=== PATIENT | female | born 1950 | race Caucasian/White ===

== ENCOUNTER 2018-06-02 17:08 | Inpatient (IN) | payer MEDICARE, BC ==
[~2018-06-02] VITALS: Ht 167.6 cm; Wt 84.1 kg
--- NOTE | ~2018-06-02 | TEE ---
PATIENT:BETTIE BERGERON MEDICAL RECORD: [id number] LOCATION:[place] [address] AGE OF PATIENT: 68 ADMISSION DATE: 06/02/18 SEX: F REFERRING PHYSICIAN: INTERPRETING PHYSICIAN: HALEY FUNEZ MD TRANSESOPHAGEAL ECHOCARDIOGRAM Date: 06/08/18 PILY CHARGE Y INDICATIONS: CABG PREMEDICATIONS: PATIENT'S RESPONSE PROCEDURE DOPPLER MEASUREMENTS: LVIT LA PA 85 RA LVOT 75 RVOT 60 Asc. Ao 119 AV Gradient Peak 5.7 AV Mean 3.1 AV Area 1.8 MV Gradient Peak 5.2 MV Mean 2.1 MV Area INTERPRETATION: LVd: 4.5 cm LVs: 2.6 cm Doppler: 2-D: COLOR FLOW DOPPLER NORMAL SALINE STUDY: MISCELLANOUS: DIAGNOSIS: PLAN: Laboratory Tech:Emilio Carpio Television And Radio Repairer: Julio Cesar KHALIL COMMENTS: DATE OF SERVICE: 06/09/2018 This is an intraoperative transesophageal. Preoperatively, normal wall motion and normal thickening. [id number] MR. Postoperatively, again, good contractility with normal thickening and normal EF. [id number] MR. TRANSINT:[id number] Voice Confirmation ID: [id number] DOCUMENT ID: [id number] TRANSESOPHAGEAL ECHOCARDIOGRAM REPORT [id number] JERRI BERGERON HALEY FUNEZ MD CC: [id number] DICTATION DATE: 06/09/18 162 INTERNAL SALESPERSON: 06/09/18[address] [facility] [address] [place] [id number]
--- NOTE | ~2018-06-02 | HEMODYNAMI ---
PATIENT:BETTIE BERGERON MEDICAL RECORD: [id number] : 52 LOCATION:[facility] ADMISSION DATE: 06/02/18 Generatedon:06/04/201810:40 Patient name: BETTIE BERGERON Patient #: [id number] SSN: D OB: 1950 Date of study: 06/04/2018 Page: Of Hemodynamic Procedure Report Patient Data Patient Demographics Procedure consent was obtained First Name: BETTIE Gender: Female Last Name: RUBIO : 1950 Patient #: [id number] Age: 68 year(s) Race: Unknown Additional ID: [id number] Contact details Address: [address] [place] [address] State: [facility] Zip code: [address] Past Medical History Allergies: No known allergies Admission Admission Data Admission Date: 06/02/2018 Admission Time: 19:35 Room #: [facility] Height (in.): 66 BSA: 1.88 (m2) Height (cm.): 167.64 BMI: 27.96 (kg/m2) Weight (lbs.): 173.26 Weight (kg.): 78.59 Lab Results Lab Result Date: 06/04/2018 Lab Result Time: 0:00 Biochemistry Name Units Result Min Max BUN mg/dl 9 --(*---)-- 7 18 Creatinine mg/dl 0.7 --(*---)-- 0.6 1.3 CBC Name Units Result Min Max Hematocrit % 41.8 -*(----)-- 42 54 Hemoglobin g/dl 14.3 --(*---)-- 13.5 17.5 Procedure Procedure Types Cath Procedure Diagnostic Procedure C [facility] w/Coronaries Sedation Charges Moderate Sedation up to 15 minutes Procedure Description Procedure Date Procedure Date: 06/04/2018 Procedure Start Time: 10:20 Procedure End Time: 10:37 Procedure Staff Name Function Flaco Carpio MD Performing Physician Ania Sprague RT Monitor Elaine Siddiqui RT Scrub Ofelia Brownlee RN Nurse Elvin Almeida RN Ice Cream Dispenser Procedure Data Cath Procedure Fluoroscopy Diagnostic fluoroscopy Total fluoroscopy Time: 3.1 time: 3.1 min min Diagnostic fluoroscopy Total fluoroscopy dose: 527 dose: 527 mGy mGy Contrast Material Contrast Material Type Amount (ml) Isovue 300 84 Entry Location Entry Primary Successful Side Size Upsize Upsize Entry Closure Succes sful Closure Location (Fr) 1 (Fr) 2 (Fr) Remarks Device Remarks Femoral Right 5 Fr Exoseal artery Estimated blood loss: 10 ml Diagnostic catheters Device Type Used For End Catheter Placement MULTIPACK JL 4.0 5Fr Procedure catheter MULTIPACK 3DRC 5Fr Procedure catheter DIAGNOSTIC AL1 5Fr Procedure catheter ([id number]) DIAGNOSTIC IM 5Fr Procedure catheter ([id number]) MULTIPACK Pigtail 5 Fr Procedure catheter Procedure Complications No complications Procedure Medications Medication Administration Route Dosage 0.9% NaCl I.V. 100 ml/hr Oxygen etCO2 Nasal cannula 2 l/min Lidocaine 2% added to field 20 Heparin Flush Bag added to field 2 bags (1000units/500ml NS) Versed I.V. 2 mg Fentanyl I.V. 50 mcg Versed I.V. 1 mg Fentanyl I.V. 25 mcg Hemodynamics Rest BSA: 1.88 (m2) HGB: 14.3 (g/dl) O2 Consumption: Estimated: 184.37 (ml/min) O2 Co nsumption indexed: Estimated:98.07 (ml/min/m) Heart Rate: 84 (bpm) Pressure Samples Time Site Value (mmHg) Purpose Heart Use Rate(bpm) 10:32 LV 134/0,16 Snapshot 83 10:33 AO 135/67(95) Pullback 83 10:33 LV 135/14,17 Pullback 83 Gradients Valve Time Site 1 Site 2 Mean SEP/DFP Peak To Heart Use (mmHg) (sec/min) Peak Rate (mmHg) (bpm) Aortic 10:33 LV AO 4 22 0 83 135/14,17 135/67(95) Calculations Valve P-P Mean Valve Index Valve Source Name Gradient Area Flow (cm2) Aortic 0 4 0 4 Snapshots Pre Cath Intra NCS Post Cath Vital Signs Time Heart Resp SPO2 etCO2 NIBP (mmHg) Rhythm Pain Sedation Rate (ipm) (%) (mmHg) Status Level (bpm) 10:04:52 84 11 100 38.9 155/92(126) NSR 0 (11) 10(A) , No pain 10:09:08 84 10 98 36 134/76(113) NSR 0 (11) 10(A) , No pain 10:13:22 83 10 98 37.5 131/74(108) NSR 0 (11) 10(A) , No pain 10:17:32 81 12 99 29.2 145/87(107) NSR 0 (11) 10(A) , No pain 10:21:45 82 10 98 42 130/70(103) NSR 0 (11) 10(A) , No pain 10:25:57 83 11 97 40.5 125/73(104) NSR 0 (11) 9(A) , No pain 10:30:07 82 12 98 39.8 127/77(94) NSR 0 (11) 9(A) , No pain 10:34:19 82 10 98 37.5 127/74(105) NSR 0 (11) 10(A) , No pain Medications Time Medication Route Dose Verified Delivered Reason Notes Eff ectiveness by by 10:03:33 0.9% NaCl I.V. 100 Flaco Ofelia used for ml/hr Balaji Brownlee supervisor bonding 10:03:40 Oxygen etCO2 2 Flaco Ofelia used for Nasal l/min Balaji Brownlee procedure cannula RN 10:03:45 Lidocaine 2% added 20ml Flaco Flaco for local to vial Balaji Carpio MD anesthetic field 10:03:50 Heparin Flush added 2 Flaco Flaco used for Bag to bags Balaji Carpio MD procedure (1000units/500ml field NS) 10:16:08 Versed I.V. 2 mg Flaco Ofelia for Balaji Brownlee sedation RN 10:16:18 Fentanyl I.V. 50 Flaco Ofelia for mcg Balaji Brownlee sedation RN 10:21:11 Versed I.V. 1 mg Flaco Ofelia for Balaji Brownlee sedation RN 10:21:21 Fentanyl I.V. 25 Flaco Ofelia for mcg Balaji Brownlee sedation market maker Log Time Note 9:24:42 Signed procedure consent form obtained from patient. 9:24:43 Diagnostic Cath status Elective 9:24:44 Time tracking: Regular hours (M-F 7:00 - 5:00) 9:24:49 Plan of Care:Hemodynamics will remain stable., Cardiac rhythm will remain stable., Comfort level will be maintained., Respiratory function will remain adequate., Patient/ family verbilizes understanding of procedure., Procedure tolerated without complication., Recovers from procedure without complications.. 9:24:59 Patient allergic to No known allergies 9:25:07 Patient Height : 66 inches 9:25:14 Patient Weight : 173.26 lbs 9::24 Lab Result : BUN 9 mg/dl 9::24 Lab Result : Hemoglobin 14.3 g/dl 9::24 Lab Result : Creatinine 0.7 mg/dl 9::24 Lab Result : Hematocrit 41.8 % 9:44:57 Elvin Almeida RN sent for patient. Start room use. 9:57:14 Patient received from Med II to CCL 1 Alert and oriented. Tansferred to table in Supine position. 9:57:15 Warm blankets applied, and yanna hugger turned on for patient comfort. 9:57:15 Correct patient and procedure confirmed by team. 9:57:16 ECG and BP/O2 sat monitors applied to patient. 10:03:22 Vital chart was started 10:03:33 0.9% NaCl 100 ml/hr I.V. was administered by Ofelia Brownlee RN; used for procedure; 10:03:40 Oxygen 2 l/min etCO2 Nasal cannula was administered by Ofelia Brownlee RN; used for procedure; 10:03:45 Lidocaine 2% 20ml vial added to field was administered by Flaco Carpio MD; for local anesthetic; 10:03:50 Heparin Flush Bag (1000units/500ml NS) 2 bags added to field was administered by Flaco Carpio MD; used for procedure; 10:09:33 Pre-procedure instructions explained to patient. 10:09:34 Pre-op teaching completed and patient verbalized understanding. 10:09:44 Family in patients room. 10:09:50 Baseline sample Acquired. 10:09:54 Rhythm: sinus rhythm 10:09:55 Baseline sample Acquired. 10:10:01 Is patient on blood thinner?Yes 10:10:09 LAST PLAVIX 4.2.19 10:10:17 Patient diabetic? Yes. 10:10:18 If diabetic: On Metformin? Yes 10:10:41 If on Metformin: Last Dose? 06/02/2018 10:10:44 Previous problem with sedation/anesthesia? No ? 10:10:45 Snore? No 10:10:46 Sleep apnea? No 10:10:47 Deviated septum? No 10:10:48 Opens mouth fully? Yes 10:10:48 Sticks out tongue? Yes 10:10:50 Airway obstruction? No ? 10:10:52 Dentures? No ? 10:10:55 Pre procedure: right dorsailis pedis pulse Doppler 10:11:02 Patient pain scale 0/10 ?. 10:11:06 IV patent on arrival in left hand with 0.9% NaCl at [facility]. 10:11:08 Lab results completed and on chart. 10:11:11 Right groin area was prepped with chlora-prep and draped in sterile fashion 10:11:12 Alarms reviewed by R. N. 10:11:12 Sharps counted by scrub and verified by R.N. 10:11:16 Use device set Femoral Dx 10:11:18 ACIST Syringe (08751) opened to sterile field. 10:11:18 Bag Decanter (2002S) opened to sterile field. 10:11:20 ACIST Hand Control (00486) opened to sterile field. 10:11:20 ACIST Manifold (88517) opened to sterile field. 10:11:21 Tegaderm 4 x 4 (1626W) opened to sterile field. 10:11:23 Medline Cath Pack ([id number]) opened to sterile field. 10:11:23 DIAGNOSTIC WIRE .035 260cm J wire (689313) opened to sterile field. 10:11:24 DIAGNOSTIC Multipack 5Fr catheter set (MD6411) opened to sterile field. 10:11:25 SHEATH 5FR Naylor ([id number]) opened to sterile field. 10:13:42 H&P Date Dictated: 06/02/2018 Within 30 days and on chart.. 10:15:54 --------ALL STOP TIME OUT------ 10:15:55 Final Timeout: patient, procedure, and site verified with staff and physician. All members of the team are in agreement. 10:15:57 Right groin site verified by team. 10:16:00 Maximum allowable Isovue 300 dose 300ml. Physician notified. (300ml for normal creatinines. For patients with creatinine of 1.7 or higher multiply weight(kg) x 5 divided by creatinine.) 10:16:04 Fire Safety Assessment: A--An alcohol-based skin anteseptic being used preoperatively., C--Open oxygen or nitrous oxide is being used., D--An ESU, laser, or fiber-optic light is being used. 10:16:08 Versed 2 mg I.V. was administered by Ofelia Brownlee RN; for sedation; 10:16:08 Sedation plan: IV Moderate Sedation Medication:Versed, Fentanyl 10:16:18 Fentanyl 50 mcg I.V. was administered by Ofelia Brownlee RN; for sedation; 10:: Zero performed for pressure channel P1 10:: Zero performed for pressure channel P1 10:20:05 Procedure started. 10:: Full Disclosure recording started 10:: Local anesthetic to right femoral artery with Lidocaine 2% by Flaco Carpio MD.INITIAL ACCESS ONLY 10:21:11 Versed 1 mg I.V. was administered by Ofelia Brownlee RN; for sedation; 10:: Fentanyl 25 mcg I.V. was administered by Ofelia Brownlee RN; for sedation; 10:21:40 A 5 Fr sheath was inserted into the Right Femoral artery 10:22:11 A MULTIPACK JL 4.0 5Fr catheter was advanced over the wire and used for Procedure. 10:24:59 LCA angiography performed. 10:25:00 Catheter exchanged over wire. 10:26:15 A MULTIPACK 3DRC 5Fr catheter was advanced over the wire and used for Procedure. 10:27:10 Catheter exchanged over wire. 10:27:18 UNABLE TO ENGAGE RCA 10:28:03 A DIAGNOSTIC AL1 5Fr catheter ([id number]) was advanced over the wire and used for Procedure. 10:28:53 RCA angiography performed. 10:29:18 Catheter exchanged over wire. 10:30:09 A DIAGNOSTIC IM 5Fr catheter ([id number]) was advanced over the wire and used for Procedure. 10:31:18 SANDS ANGIOGRAPHY PERFORMED 10:31:23 Catheter exchanged over wire. 10:31:31 A MULTIPACK Pigtail 5 Fr catheter was advanced over the wire and used for Procedure. 10:32:01 LV gram done using ORDOÑEZ 10:32:03 Injector settings: Ml/sec: 10, Volume: 20, 10:32:37 LV hemodynamics recorded. 10:32:47 EF : 50 % 10:33:03 Catheter removed. 10:33:18 EXOSEAL 5Fr (EX500) opened to sterile field. 10:34:38 Sheath removed intact; hemostasis achieved with Exoseal to the Right Femoral artery. 10:34:50 Procedure ended.(Physican Out) 10:35:04 Fluoroscopy time 03.10 minutes. 10:35:09 Fluoroscopy dose: 527 mGy 10:35:09 Flurop Dose total: 527 10:36:29 Contrast amount:Isovue 300 84ml. 10:36:30 Sharps counted by scrub and verified by R.N. 10:36:35 Post-op/insertion site Right Femoral artery dressed using a 4 x 4 and Tegaderm. 10:36:40 Post-procedure physical assessment completed. ASA score P 3 - A patient with severe systemic disease as per Flaco Carpio MD. 10:36:44 Post procedure rhythm: sinus rhythm 10:36:45 Estimated blood loss: 10 ml 10:36:53 Post procedure instruction explained to patient.Patient verbalizes understanding. 10:36:54 Patient needs reinforcement of post procedure teaching. 10:37:00 Procedure type changed to Cath procedure, Diagnostic procedure, LHC, LHC w/Coronaries, Sedation Charges, Moderate Sedation up to 15 minutes 10:37:22 Procedure and supply charges have been captured, reviewed, submitted and are correct. 10:37:24 Procedure Complication : No complications 10:37:26 Vital chart was stopped 10:37:27 See physician's report for complete and final results. 10:37:29 Report given to PCU. 10:37:33 Patient transfered to PCU with Bed. 10:37:35 Procedure ended. 10:37:35 Full Disclosure recording stopped 10:37:38 End room use (Document Last) Device Usage Item Name Manufacture Quantity Catalog Hospital Part Current Minimal L ot# / Number Charge Number Stock Stock Serial# Code ACIST Acist 1 79823 590459 194537 482606 20 Syringe Mediasurface (36955) Systems Inc Bag Microtek 1 864816 92979 898659 5 Decanter Medical Inc. () ACIST Hand Acist 1 47380 936478 631404 405228 5 Control Medical (64649) Systems Inc ACIST Acist 1 89246 007635 025901 273345 5 Manifold Medical (95928) Systems Inc Tegaderm 4 3M 1 1626W 828606 834628 097349 5 x 4 (1626W) Medline Medline 1 [id number] 957013 66065 442927 5 Cath Pack ([id number]) DIAGNOSTIC St Sandip 1 271360 454996 133978 545228 30 WIRE .035 260cm J wire (116156) DIAGNOSTIC Cardinal 1 [id number] 792564 84850 563043 30 Multipack Health 5Fr catheter set (AX7502) SHEATH 5FR Terumo 1 POZ755 497513 196499 108559 5 Naylor (VYU925) MULTIPACK Cardinal 1 832382 5 JL 4.0 5Fr Health catheter MULTIPACK Cardinal 1 417733 5 3DRC 5Fr Health catheter DIAGNOSTIC Cardinal 1 [id number] 174285 045226 542335 15 AL1 5Fr Health catheter ([id number]) DIAGNOSTIC Cardinal 1 [id number] 480123 394482 044291 5 IM 5Fr Health catheter ([id number]) MULTIPACK Cardinal 1 801024 5 Pigtail 5 Health Fr catheter EXOSEAL 5Fr Cardinal 1 EX500 185348 899656 880722 10 (EX500) Health Signature Audit Waymart Stage Time Signature Unsigned Intra-Procedure 06/04/2018 Elaine Siddiqui 10:40:32 AM RT(R) Signatures Monitor : Ania Signature : Counts RT Date : Time : [facility] [address] [place] [address]
[2018-06-02] MEDS ORDERED: LANTUS SOL100 UNIT/1 SC (17:14)
[2018-06-02] MEDS ORDERED: ACCUPRIL20 MG PO (17:15)
[2018-06-02] MEDS ORDERED: HUMALOG 30100 UNITS/ SC (17:15)
[2018-06-02] MEDS ORDERED: LIPITOR40 MG PO (17:15)
[2018-06-02] MEDS ORDERED: PLAVIX75 MG PO (17:15)
[2018-06-02] MEDS ORDERED: GLUCOPHAGE1000 MG PO (17:16)
[2018-06-02 18:10] LABS: BASOPHILS 0.6 % (0-2); EOSINOPHILS 0.7 % (0-7); HEMOGLOBIN 15.2 g/dL (12-16); IMMATURE GRANULOCYTES 0.3 % (0-5); LYMPHOCYTES 19.6 % (15-50); MCH 30.5 pg (26.0-34.0); MCHC 35.3 g/dL (31.0-37.0); MCV 86.2 fL (80.0-100.0); MEAN PLATELET VOLUME 12.1 fL (7.4-10.4); MONOCYTES 7.9 % (2-11); NEUTROPHILS 70.9 % (40-80); PLATELET COUNT 221 10x3/uL (130-400); RBC 4.99 10x6/uL (4.00-5.40); RDW 12.4 % (11.5-14.5); WBC 6.8 10x3/uL (4.8-10.8)
[2018-06-02 18:21] LABS: APTT 25.5 SECONDS (22.8-39.4); INR 1.08 (0.85-1.17); PROTIME 13.5 SECONDS (11.6-15.0)
[2018-06-02 18:47] LABS: ALBUMIN 2.8 g/dL (3.4-5.0); ALKALINE PHOSPHATASE 153 U/L (46-116); ALT (SGPT) 25 U/L (10-68); BILIRUBIN - TOTAL 0.33 mg/dL (0.2-1.3); CALC OSMOLALITY 290 mosm/kg (275-300); CALCIUM 8.1 mg/dL (8.5-10.1); CARBON DIOXIDE 26.9 mmol/L (21.0-32.0); CHLORIDE - SERUM 102 mmol/L (98-107); CKMB 3.2 U/L (0.0-3.6); CREATINE KINASE 70 UL (21-215); CREATININE - SERUM 0.7 mg/dL (0.6-1.3); GLUCOSE 351 mg/dL (74-106); POTASSIUM - SERUM 3.4 mmol/L (3.5-5.1); PROTEIN - SERUM 6.6 g/dL (6.4-8.2); SODIUM 139 mmol/L (136-145); UREA NITROGEN 10 mg/dL (7-18); eGFR NON AFRICAN AMERICAN 88 mL/min (90-120)
[2018-06-02 19:00] LABS: TROPONIN-I 0.601 ng/mL (0.000-0.060)
[2018-06-02 19:42] VITALS: BP 144/83
[2018-06-02 20:00] VITALS: BP 130/80
[2018-06-02 20:26] VITALS: BP 133/83
[2018-06-03] VITALS: BP 142/69
[2018-06-03 03:22] VITALS: BP 130/80; BMI 28.1
[2018-06-03 04:00] VITALS: BP 124/76
[2018-06-03 05:43] LABS: BASOPHILS 0.8 % (0-2); EOSINOPHILS 1.5 % (0-7); HEMATOCRIT 41.4 % (36.0-48.0); HEMOGLOBIN 14.3 g/dL (12-16); IMMATURE GRANULOCYTES 0.2 % (0-5); LYMPHOCYTES 25.3 % (15-50); MCH 30.2 pg (26.0-34.0); MCHC 34.5 g/dL (31.0-37.0); MCV 87.5 fL (80.0-100.0); MEAN PLATELET VOLUME 11.6 fL (7.4-10.4); MONOCYTES 8.8 % (2-11); NEUTROPHILS 63.4 % (40-80); PLATELET COUNT 192 10x3/uL (130-400); RBC 4.73 10x6/uL (4.00-5.40); RDW 12.4 % (11.5-14.5); WBC 6.1 10x3/uL (4.8-10.8)
[2018-06-03 06:15] LABS: ALBUMIN 2.8 g/dL (3.4-5.0); ALKALINE PHOSPHATASE 146 U/L (46-116); ALT (SGPT) 23 U/L (10-68); BILIRUBIN - TOTAL 0.53 mg/dL (0.2-1.3); CALCIUM 8.4 mg/dL (8.5-10.1); CARBON DIOXIDE 31.3 mmol/L (21.0-32.0); CHLORIDE - SERUM 102 mmol/L (98-107); CREATININE - SERUM 0.7 mg/dL (0.6-1.3); POTASSIUM - SERUM 3.1 mmol/L (3.5-5.1); PROTEIN - SERUM 6.4 g/dL (6.4-8.2); SODIUM 140 mmol/L (136-145); eGFR NON AFRICAN AMERICAN 88 mL/min (90-120)
[2018-06-03 06:16] LABS: CALC OSMOLALITY 288 mosm/kg (275-300); GLUCOSE 276 mg/dL (74-106); UREA NITROGEN 13 mg/dL (7-18)
[2018-06-03 09:23] VITALS: BP 142/75
[2018-06-03 13:01] VITALS: BP 154/70
[2018-06-03 20:30] VITALS: BP 150/73
[2018-06-04] VITALS (10 sets, daily range): BP systolic 123–152; BP diastolic 62–83; BMI 27.9
[2018-06-04 05:59] LABS: BASOPHILS 0.8 % (0-2); HEMATOCRIT 41.8 % (36.0-48.0); HEMOGLOBIN 14.3 g/dL (12-16); IMMATURE GRANULOCYTES 0.2 % (0-5); LYMPHOCYTES 24.2 % (15-50); MCH 29.5 pg (26.0-34.0); MCHC 34.2 g/dL (31.0-37.0); MCV 86.4 fL (80.0-100.0); MONOCYTES 10.5 % (2-11); NEUTROPHILS 61.3 % (40-80); PLATELET COUNT 185 10x3/uL (130-400); RBC 4.84 10x6/uL (4.00-5.40); RDW 12.4 % (11.5-14.5)
[2018-06-04 06:09] LABS: ALBUMIN 2.5 g/dL (3.4-5.0); ALKALINE PHOSPHATASE 129 U/L (46-116); ALT (SGPT) 22 U/L (10-68); BILIRUBIN - TOTAL 0.46 mg/dL (0.2-1.3); CALC OSMOLALITY 285 mosm/kg (275-300); CALCIUM 8.2 mg/dL (8.5-10.1); CARBON DIOXIDE 29.2 mmol/L (21.0-32.0); CHLORIDE - SERUM 104 mmol/L (98-107); CREATININE - SERUM 0.7 mg/dL (0.6-1.3); GLUCOSE 258 mg/dL (74-106); MAGNESIUM - SERUM 1.8 mg/dL (1.8-2.4); POTASSIUM - SERUM 3.4 mmol/L (3.5-5.1); SODIUM 139 mmol/L (136-145); eGFR NON AFRICAN AMERICAN 88 mL/min (90-120)
[2018-06-04 06:11] LABS: UREA NITROGEN 9 mg/dL (7-18)
[2018-06-04 15:38] LABS: PLT FUNCT.(P2Y12) PLAVIX 224 PRU (194-418)
[2018-06-05] VITALS: BP 125/52
[2018-06-05 04:00] VITALS: BP 145/88
[2018-06-05 04:49] LABS: BASOPHILS 0.5 % (0-2); EOSINOPHILS 2.6 % (0-7); HEMATOCRIT 41.3 % (36.0-48.0); IMMATURE GRANULOCYTES 0.2 % (0-5); LYMPHOCYTES 22.5 % (15-50); MCH 29.9 pg (26.0-34.0); MCHC 33.9 g/dL (31.0-37.0); MCV 88.2 fL (80.0-100.0); MEAN PLATELET VOLUME 11.7 fL (7.4-10.4); MONOCYTES 10.7 % (2-11); NEUTROPHILS 63.5 % (40-80); PLATELET COUNT 166 10x3/uL (130-400); RBC 4.68 10x6/uL (4.00-5.40); RDW 12.6 % (11.5-14.5); WBC 6.1 10x3/uL (4.8-10.8)
[2018-06-05 05:11] LABS: ALBUMIN 2.5 g/dL (3.4-5.0); ALKALINE PHOSPHATASE 128 U/L (46-116); ALT (SGPT) 24 U/L (10-68); BILIRUBIN - TOTAL 0.31 mg/dL (0.2-1.3); CALCIUM 8.1 mg/dL (8.5-10.1); CARBON DIOXIDE 28.1 mmol/L (21.0-32.0); CHLORIDE - SERUM 102 mmol/L (98-107); CREATININE - SERUM 0.7 mg/dL (0.6-1.3); PROTEIN - SERUM 6.2 g/dL (6.4-8.2); SODIUM 135 mmol/L (136-145); eGFR NON AFRICAN AMERICAN 88 mL/min (90-120)
[2018-06-05 05:14] LABS: CALC OSMOLALITY 283 mosm/kg (275-300); GLUCOSE 328 mg/dL (74-106); UREA NITROGEN 15 mg/dL (7-18)
[2018-06-05 08:12] VITALS: BP 144/79
[2018-06-05 12:06] LABS: BASOPHILS 0.3 % (0-2); EOSINOPHILS 1.7 % (0-7); HEMATOCRIT 40.8 % (36.0-48.0); HEMOGLOBIN 14.1 g/dL (12-16); IMMATURE GRANULOCYTES 0.2 % (0-5); LYMPHOCYTES 16.4 % (15-50); MCH 30.5 pg (26.0-34.0); MCHC 34.6 g/dL (31.0-37.0); MCV 88.1 fL (80.0-100.0); MEAN PLATELET VOLUME 11.9 fL (7.4-10.4); MONOCYTES 8.9 % (2-11); NEUTROPHILS 72.5 % (40-80); RBC 4.63 10x6/uL (4.00-5.40); RDW 12.6 % (11.5-14.5); WBC 5.7 10x3/uL (4.8-10.8)
[2018-06-05 12:08] LABS: PLATELET COUNT 203 10x3/uL (130-400)
[2018-06-05 12:10] LABS: APTT 22.2 SECONDS (22.8-39.4); INR 1.1 (0.85-1.17); PROTIME 13.7 SECONDS (11.6-15.0)
[2018-06-05 12:26] LABS: ALBUMIN 2.6 g/dL (3.4-5.0); ALKALINE PHOSPHATASE 130 U/L (46-116); ALT (SGPT) 26 U/L (10-68); BILIRUBIN - TOTAL 0.34 mg/dL (0.2-1.3); CALC OSMOLALITY 282 mosm/kg (275-300); CALCIUM 8.1 mg/dL (8.5-10.1); CARBON DIOXIDE 28.8 mmol/L (21.0-32.0); CHLORIDE - SERUM 100 mmol/L (98-107); CHOLESTEROL, TOTAL 247 mg/dL (0-200); CREATININE - SERUM 0.7 mg/dL (0.6-1.3); GLUCOSE 344 mg/dL (74-106); PHOSPHOROUS 3.5 mg/dL (2.5-4.9); POTASSIUM - SERUM 3.9 mmol/L (3.5-5.1); PROTEIN - SERUM 6.2 g/dL (6.4-8.2); SODIUM 134 mmol/L (136-145); T4 THYROXIN - FREE 1.13 ng/dL (0.76-1.46); THYROID STIMULATING HORMONE 0.72 uIU/mL (0.36-3.74); UREA NITROGEN 14 mg/dL (7-18); URIC ACID 2.1 mg/dL (2.6-7.2); eGFR NON AFRICAN AMERICAN 88 mL/min (90-120)
[2018-06-05 12:31] VITALS: BP 136/60
[2018-06-05 16:06] VITALS: Ht 167.6 cm; Wt 84.1 kg
[2018-06-05 16:39] VITALS: BP 116/61
[2018-06-05 18:04] LABS: APPEARANCE CLEAR (CLEAR); COLOR YELLOW (YELLOW); SPECIFIC GRAVITY 1.015 (1.005-1.020)
[2018-06-05 18:05] LABS: BILIRUBIN NEGATIVE (NEGATIVE); GLUCOSE 1000 mg/dL (NEGATIVE); KETONE NEGATIVE (NEGATIVE); NITRITE NEGATIVE (NEGATIVE); PROTEIN NEGATIVE (NEGATIVE); UROBILINOGEN NORMAL (NORMAL)
[2018-06-05 20:00] VITALS: BP 160/76
[2018-06-06 00:06] VITALS: BP 135/66
[2018-06-06 04:00] VITALS: BP 136/66
[2018-06-06 05:10] LABS: BASOPHILS 0.4 % (0-2); EOSINOPHILS 2.3 % (0-7); HEMATOCRIT 41.8 % (36.0-48.0); HEMOGLOBIN 14.3 g/dL (12-16); IMMATURE GRANULOCYTES 0.1 % (0-5); LYMPHOCYTES 27.5 % (15-50); MCH 29.9 pg (26.0-34.0); MCHC 34.2 g/dL (31.0-37.0); MCV 87.4 fL (80.0-100.0); MONOCYTES 12.4 % (2-11); NEUTROPHILS 57.3 % (40-80); PLATELET COUNT 179 10x3/uL (130-400); RBC 4.78 10x6/uL (4.00-5.40); RDW 12.4 % (11.5-14.5); WBC 6.8 10x3/uL (4.8-10.8)
[2018-06-06 05:30] LABS: ALBUMIN 2.6 g/dL (3.4-5.0); ALKALINE PHOSPHATASE 126 U/L (46-116); ALT (SGPT) 29 U/L (10-68); BILIRUBIN - TOTAL 0.41 mg/dL (0.2-1.3); CALCIUM 8.3 mg/dL (8.5-10.1); CARBON DIOXIDE 28.6 mmol/L (21.0-32.0); CHLORIDE - SERUM 103 mmol/L (98-107); CREATININE - SERUM 0.6 mg/dL (0.6-1.3); POTASSIUM - SERUM 3.6 mmol/L (3.5-5.1); PROTEIN - SERUM 6.3 g/dL (6.4-8.2); SODIUM 138 mmol/L (136-145); UREA NITROGEN 14 mg/dL (7-18); eGFR NON AFRICAN AMERICAN > 90 mL/min (90-120)
[2018-06-06 05:31] LABS: CALC OSMOLALITY 279 mosm/kg (275-300); GLUCOSE 154 mg/dL (74-106)
[2018-06-06 09:51] VITALS: BP 140/70
[2018-06-06 13:11] VITALS: BP 141/79
[2018-06-06 17:40] VITALS: BP 128/86
[2018-06-06 20:13] LABS: INR 1.11 (0.85-1.17); PROTIME 13.8 SECONDS (11.6-15.0)
[2018-06-06 20:16] LABS: APTT 36.4 SECONDS (22.8-39.4)
[2018-06-07] VITALS (8 sets, daily range): BP systolic 116–161; BP diastolic 56–81
[2018-06-07 03:35] LABS: BASOPHILS 0.5 % (0-2); EOSINOPHILS 2.4 % (0-7); HEMATOCRIT 42.2 % (36.0-48.0); HEMOGLOBIN 14.7 g/dL (12-16); IMMATURE GRANULOCYTES 0.3 % (0-5); LYMPHOCYTES 28.7 % (15-50); MCH 30.3 pg (26.0-34.0); MCHC 34.8 g/dL (31.0-37.0); MEAN PLATELET VOLUME 11.7 fL (7.4-10.4); MONOCYTES 9.6 % (2-11); NEUTROPHILS 58.5 % (40-80); PLATELET COUNT 191 10x3/uL (130-400); RBC 4.85 10x6/uL (4.00-5.40); RDW 12.4 % (11.5-14.5); WBC 5.7 10x3/uL (4.8-10.8)
[2018-06-07 03:44] LABS: INR 1.08 (0.85-1.17); PROTIME 13.5 SECONDS (11.6-15.0)
[2018-06-07 03:57] LABS: ALBUMIN 2.6 g/dL (3.4-5.0); ALKALINE PHOSPHATASE 125 U/L (46-116); ALT (SGPT) 36 U/L (10-68); BILIRUBIN - TOTAL 0.32 mg/dL (0.2-1.3); CALC OSMOLALITY 274 mosm/kg (275-300); CALCIUM 8.4 mg/dL (8.5-10.1); CARBON DIOXIDE 28.8 mmol/L (21.0-32.0); CHLORIDE - SERUM 103 mmol/L (98-107); CREATININE - SERUM 0.5 mg/dL (0.6-1.3); GLUCOSE 119 mg/dL (74-106); POTASSIUM - SERUM 3.4 mmol/L (3.5-5.1); PROTEIN - SERUM 6.4 g/dL (6.4-8.2); SODIUM 137 mmol/L (136-145); UREA NITROGEN 13 mg/dL (7-18); eGFR NON AFRICAN AMERICAN > 90 mL/min (90-120)
[2018-06-07 10:09] LABS: INR 1.06 (0.85-1.17); PROTIME 13.3 SECONDS (11.6-15.0)
[2018-06-07 10:10] LABS: APTT 43.9 SECONDS (22.8-39.4)
[2018-06-07 17:07] LABS: INR 1.06 (0.85-1.17); PROTIME 13.3 SECONDS (11.6-15.0)
[2018-06-07 17:08] LABS: APTT 58.1 SECONDS (22.8-39.4)
[2018-06-08] VITALS (40 sets, daily range): BP systolic 111–142; BP diastolic 50–75
[2018-06-08 01:44] LABS: BASOPHILS 0.3 % (0-2); EOSINOPHILS 2.2 % (0-7); HEMATOCRIT 44.1 % (36.0-48.0); HEMOGLOBIN 15.2 g/dL (12-16); IMMATURE GRANULOCYTES 0.2 % (0-5); LYMPHOCYTES 25.8 % (15-50); MCH 30.5 pg (26.0-34.0); MCHC 34.5 g/dL (31.0-37.0); MCV 88.4 fL (80.0-100.0); MEAN PLATELET VOLUME 11.4 fL (7.4-10.4); MONOCYTES 10.1 % (2-11); NEUTROPHILS 61.4 % (40-80); PLATELET COUNT 204 10x3/uL (130-400); RBC 4.99 10x6/uL (4.00-5.40); RDW 12.5 % (11.5-14.5); WBC 6.2 10x3/uL (4.8-10.8)
[2018-06-08 02:06] LABS: ALBUMIN 2.8 g/dL (3.4-5.0); ALKALINE PHOSPHATASE 137 U/L (46-116); ALT (SGPT) 36 U/L (10-68); BILIRUBIN - TOTAL 0.33 mg/dL (0.2-1.3); CALC OSMOLALITY 279 mosm/kg (275-300); CALCIUM 8.7 mg/dL (8.5-10.1); CHLORIDE - SERUM 99 mmol/L (98-107); CREATININE - SERUM 0.8 mg/dL (0.6-1.3); GLUCOSE 310 mg/dL (74-106); MAGNESIUM - SERUM 1.9 mg/dL (1.8-2.4); POTASSIUM - SERUM 4.1 mmol/L (3.5-5.1); PROTEIN - SERUM 6.9 g/dL (6.4-8.2); SODIUM 134 mmol/L (136-145); UREA NITROGEN 13 mg/dL (7-18); eGFR NON AFRICAN AMERICAN 76 mL/min (90-120)
[2018-06-08 15:49] LABS: BASOPHILS 0.1 % (0-2); EOSINOPHILS 0.2 % (0-7); IMMATURE GRANULOCYTES 0.4 % (0-5); LYMPHOCYTES 9.1 % (15-50); MCH 29.7 pg (26.0-34.0); MCHC 33.9 g/dL (31.0-37.0); MCV 87.4 fL (80.0-100.0); MEAN PLATELET VOLUME 10.9 fL (7.4-10.4); MONOCYTES 7.6 % (2-11); NEUTROPHILS 82.6 % (40-80); PLATELET COUNT 169 10x3/uL (130-400); RDW 12.5 % (11.5-14.5)
[2018-06-08 16:01] LABS: INR 1.18 (0.85-1.17); PROTIME 14.5 SECONDS (11.6-15.0)
[2018-06-08 16:25] LABS: HEMATOCRIT 33.3 % (36.0-48.0); HEMOGLOBIN 11.3 g/dL (12-16); RBC 3.81 10x6/uL (4.00-5.40); WBC 10.3 10x3/uL (4.8-10.8)
[2018-06-09] VITALS (34 sets, daily range): BP systolic 113–143; BP diastolic 53–76
[2018-06-09 06:30] LABS: MCH 29.5 pg (26.0-34.0); MCHC 33.3 g/dL (31.0-37.0); MCV 88.5 fL (80.0-100.0); RBC 3.73 10x6/uL (4.00-5.40); RDW 12.5 % (11.5-14.5); WBC 10.6 10x3/uL (4.8-10.8)
[2018-06-09 06:33] LABS: ALBUMIN 2.5 g/dL (3.4-5.0); ALKALINE PHOSPHATASE 81 U/L (46-116); ALT (SGPT) 32 U/L (10-68); BILIRUBIN - TOTAL 0.37 mg/dL (0.2-1.3); CALCIUM 7.5 mg/dL (8.5-10.1); PROTEIN - SERUM 5.3 g/dL (6.4-8.2); UREA NITROGEN 11 mg/dL (7-18)
[2018-06-09 06:55] LABS: CALC OSMOLALITY 269 mosm/kg (275-300); CARBON DIOXIDE 23.8 mmol/L (21.0-32.0); CHLORIDE - SERUM 102 mmol/L (98-107); CREATININE - SERUM 0.5 mg/dL (0.6-1.3); GLUCOSE 186 mg/dL (74-106); POTASSIUM - SERUM 3.9 mmol/L (3.5-5.1); SODIUM 133 mmol/L (136-145); eGFR NON AFRICAN AMERICAN > 90 mL/min (90-120)
--- NOTE | 2018-06-09 13:08 | OP ---
PATIENT NAME: BETTIE BERGERON MEDICAL RECORD: [id number] :52 LOCATION:D.[facility] [id number] ADMISSION DATE:06/02/18 SURGEON: JUAN SANTANA MD DATE OF OPERATION: 06/08/2018 SURGEON: Juan Santana MD RETAIL REPRESENTATIVE: Maycol Brown OPERATIONS PERFORMED: 1. Coronary artery bypass graft times 3 (left internal mammary to LAD; reverse saphenous vein grafts from aorta to obtuse marginal, aorta to posterolateral branch of right coronary artery). 2. Endoscopic saphenous vein harvest. PREOPERATIVE DIAGNOSIS: Coronary artery disease with unstable angina. POSTOPERATIVE DIAGNOSIS: Coronary artery disease with unstable angina. ANESTHESIA: General endotracheal anesthesia. ESTIMATED BLOOD LOSS: Total cardiopulmonary bypass with Cell Saver retransfusion. One platelet and 2 FFPs transfused. COMPLICATIONS: None. SPECIMENS: None. CONDITION: Stable. DISPOSITION: CV ICU. OPERATIVE FINDINGS: 1. Transesophageal echocardiography revealed 2+ eccentric mitral regurgitation, unchanged after cardiopulmonary bypass. Good contractility. 2. Thin-walled greater saphenous vein, right thigh, harvested endoscopically, requiring a separate incision just above the knee as there was a dual system from the distal thigh down to below the knee. The vessel, vein had multiple thin sites, requiring 7-0 Prolene, but was overall adequate quality. 3. Good quality left internal mammary artery. The LAD was deep intramyocardial and the right ventricle was entered at one point, requiring a pledgeted closure. The LAD was a severely diseased 1.5-mm vessel and a 1.5-mm probe passed distally to the apex. There was good Doppler signal after anastomosis and after reversal of heparin. The diagonal was severely diseased and not amenable for bypass. 4. The obtuse marginal was a 2.0-mm vessel with severe disease. 5. The posterior descending artery was small and severely diseased. The ongoing right coronary artery was followed out distally, where it was severely diseased to a region of the posterolateral, which is of reasonable quality 1.5-mm vessel. 6. Severely fatty heart, but with good contractility and from cardiopulmonary bypass without vasopressors. OPERATIVE INDICATIONS: Coronary artery disease and unstable angina. OPERATIVE REPORT [id number] BETTIE BERGERON PROCEDURE IN DETAIL: The patient was brought to the operating suite. General anesthesia was obtained. The patient was prepped and draped. Greater saphenous vein harvested from right lower extremity utilizing endoscopic technique. Side branches were divided with electrocautery. The vessel was ligated proximally. A separate incision was made. Side branches were clipped. The vessel was ligated proximally and distally, then cannulated, and branches tied and vent sites oversewn. Leg was irrigated and closed in 2 layers and later wrapped with an elastic wrap. Median sternotomy incision was made. Subcutaneous tissue was divided with electrocautery. Sternum was divided with a saw. Left hemisternum was elevated. Left pleural cavity was entered. Left internal mammary was taken as a pedicle graft. Sternal retractor was placed. Pericardium was opened. Heparin was given. Aorta was cannulated. Dual stage venous cannula was inserted. Internal mammary was clipped distally and made ready for anastomosis. Activated clotting time initially in the high 300s. Extra heparin was given. After this had circulated, the patient was placed on cardiopulmonary bypass and subsequent activated clotting times above 500. Sites for distal anastomoses were selected. The anterior ascending cardioplegia needle was inserted. The patient was cooled. Cross-clamp was placed. Cardioplegia was given antegrade and this was repeated at 15- to 20-minute intervals during the cross-clamp time including down the completed vein grafts. Distal anastomoses were performed in standard technique with the dissection of the ongoing right deep into the epicardial fat and the LAD deep into the epicardial fat and then the myocardium as it was an intramyocardial vessel. The diagonal was also dissected out in the intramyocardial fat, but was not amenable to bypass. Proximal anastomosis in single cross-clamp technique. Aortic root de-aired by removing the cross-clamp, then tying the proximal anastomosis, de-airing the vein grafts, and restoring flow. Proximal and distal anastomotic sites were inspected for bleeding with single suture at the proximal site. Hemostasis was ensured. The patient was fully rewarmed, weaned from cardiopulmonary bypass, and was stable. The patient was decannulated. Aortic cannulation site was oversewn with a pledgeted Prolene suture. Protamine was given. Thorough irrigation was undertaken. Grafts lay appropriately and hemostasis was ensured. The ventricular pacing wires were placed. Drains were placed in mediastinum and in both pleural cavities. Pericardial fat was loosely reapproximated in the midline. Left chest was evacuated and irrigated. Internal mammary harvest site was inspected for bleeding. Sternum was closed with wires. Fascia was closed. Subcutaneous tissue was closed. Skin was closed. Dermabond was placed. Needle and sponge counts were reported as correct. The patient was taken to ICU in stable condition. TRANSINT:[id number] Voice Confirmation ID: [id number] DOCUMENT ID: [id number] OPERATIVE REPORT [id number] BETTIE BERGERON, JUAN Bejarano MD at 1308 CC: YOJANA BRAND M.D. and CHUCKY SHEPPARD MD [id number] DICTATION DATE: 06/08/18 1527 HOME HEALTH NURSE: 06/08/18 1745 ADM IN [facility] [address] [id number]
[2018-06-10] VITALS (22 sets, daily range): BP systolic 93–134; BP diastolic 51–82
[2018-06-10 06:23] LABS: ALBUMIN 2.3 g/dL (3.4-5.0); ALKALINE PHOSPHATASE 101 U/L (46-116); ALT (SGPT) 32 U/L (10-68); BILIRUBIN - TOTAL 0.38 mg/dL (0.2-1.3); CALCIUM 8.1 mg/dL (8.5-10.1); CARBON DIOXIDE 27.9 mmol/L (21.0-32.0); CHLORIDE - SERUM 102 mmol/L (98-107); CREATININE - SERUM 0.5 mg/dL (0.6-1.3); GLUCOSE 151 mg/dL (74-106); POTASSIUM - SERUM 3.5 mmol/L (3.5-5.1); PROTEIN - SERUM 5.8 g/dL (6.4-8.2); SODIUM 136 mmol/L (136-145); eGFR NON AFRICAN AMERICAN > 90 mL/min (90-120)
[2018-06-10 06:41] LABS: HEMATOCRIT 35.6 % (36.0-48.0); HEMOGLOBIN 11.8 g/dL (12-16); MCH 29.7 pg (26.0-34.0); MCHC 33.1 g/dL (31.0-37.0); MCV 89.7 fL (80.0-100.0); MEAN PLATELET VOLUME 11.7 fL (7.4-10.4); RBC 3.97 10x6/uL (4.00-5.40); RDW 12.9 % (11.5-14.5); WBC 11.7 10x3/uL (4.8-10.8)
[2018-06-10 06:59] LABS: CALC OSMOLALITY 272 mosm/kg (275-300); UREA NITROGEN 8 mg/dL (7-18)
--- NOTE | 2018-06-10 18:41 | MORECARE ---
CASE MANAGEMENT DISCHARGE SUMMARY PATIENT: BETTIE BERGERON UNIT: [id number] ADM DATE: 06/02/18 AGE: 68 : 51 SEX: F ROOM/BED: D[facility] AUTHOR: TAINA SANCHEZ PHYSICIAN: REFERRING PHYSICIAN: CHUCKY SHEPPARD MD DATE OF SERVICE: 06/10/18 Discharge Plan Patient Name: BETTIE BERGERON [facility] [facility] 1950 Planned Disposition: Home Anticipated Discharge Date: Discharge Date: Expected LOS: Initial Reviewer: [email or web address] Initial Review Date: 06/09/2018 Generated: 06/10/18 7:41 pm DCPIA - Discharge Planning Initial Assessment Updated by [email or web address]: Mari Miller on 06/10/18 6:39 pm * Is the patient Alert and Oriented? Yes * How many steps to enter\exit or inside your home? * PCP PAULA * Pharmacy [facility] * Preadmission Environment Home Alone * ADLs Independent * Equipment None * List name and contact numbers for known caregivers / representatives who currently or will assist patient after discharge: TALHA FONG - BROTHER- [phone] LIU CHACKO - SISTER- [phone] * Verbal permission to speak to the caregivers and representatives has been obtained from the patient. N/A * Additional services required to return to the preadmission environment? No * Can the patient safely return to the preadmission environment? Yes * Has this patient been hospitalized within the prior 30 days at any hospital? No Patient Name: BETTIE BERGERON Page [phone] at 1841 All edits/amendments must be made on the electronic document DICTATION DATE: 06/10/181839 ADVISORY INTERN: FREDERIC 06/10/181839 RPT#: [id number] DC DATE: STATUS: ADM IN [facility] [address] [place] [address] END OF REPORT
--- NOTE | 2018-06-10 18:49 | MORECARE ---
CASE MANAGEMENT DISCHARGE SUMMARY PATIENT: BETTIE BERGERON UNIT: [id number] ADM DATE: 06/02/18 AGE: 68 : 51 SEX: F ROOM/BED: D.06 AUTHOR: LAURA,DOC PHYSICIAN: REFERRING PHYSICIAN: CHUCKY SHEPPARD MD DATE OF SERVICE: 06/10/18 Discharge Plan Patient Name: BETTIE BERGERON Facility: [facility]:[place] : 1950 Planned Disposition: Home Anticipated Discharge Date: Discharge Date: Expected LOS: Initial Reviewer: [email or web address] Initial Review Date: 06/09/2018 Generated: 06/10/18 7:49 pm Comments DCP- Discharge Planning Updated by [email or web address]: Mari Miller on 06/10/18 5:[address] LATE ENTRY 06/09/18 @ 0830 Patient Name: BETTIE BERGERON Admission Status: ER Accout number: [id number] Admission Date: 06-02-2018 : 1950 Admission Diagnosis:NON-ST ELEVATION (NSTEMI) MYOCARDIAL INFARCTION Attending: SILVER, Current LOS: 8 Anticipated DC Date: Planned Disposition: Home Primary Insurance: MEDICARE A & B Discharge Planning Comments: CM met with patient at bedside after explaining CM role and obtaining verbal consent. Patient lives at home alone and plans to return there upon discharge. Patient states she has family that lives close. CM discussed availability / needs of home health and medical equipment. Patient denies any discharge needs at this time. Patient states she will have family drive her home upon discharge. CM will continue to follow and assist as needed with discharge planning / needs. Scale Model Maker: Mari Miller DCPIA - Discharge Planning Initial Assessment Updated by [email or web address]: Mari Miller on 06/10/18 6:39 pm * Is the patient Alert and Oriented? Yes * How many steps to enter\exit or inside your home? * PCP PAULA * Pharmacy [facility] * Preadmission Environment Home Alone * ADLs Independent * Equipment None * List name and contact numbers for known caregivers / representatives who currently or will assist patient after discharge: TALHA FONG - BROTHER- [phone] LIU CHACKO - SISTER- [phone] * Verbal permission to speak to the caregivers and representatives has been obtained from the patient. N/A * Additional services required to return to the preadmission environment? No * Can the patient safely return to the preadmission environment? Yes * Has this patient been hospitalized within the prior 30 days at any hospital? No Last DP export: 06/10/18 5:41 p Patient Name: BETTIE BERGERON Page [id number] at 1849 All edits/amendments must be made on the electronic document DICTATION DATE: 06/10/181847 CATERING CON[employer]ION SERVICES MANAGER: FREDERIC 06/10/181847 RPT#: [id number] DC DATE: STATUS: ADM IN [facility] [address] [place] [address] END OF REPORT
[2018-06-11] VITALS (18 sets, daily range): BP systolic 105–136; BP diastolic 51–75
[2018-06-11 06:05] LABS: HEMATOCRIT 33.3 % (36.0-48.0); HEMOGLOBIN 11.1 g/dL (12-16); MCH 29.7 pg (26.0-34.0); MCHC 33.3 g/dL (31.0-37.0); MEAN PLATELET VOLUME 11.2 fL (7.4-10.4); RBC 3.74 10x6/uL (4.00-5.40); RDW 12.9 % (11.5-14.5); WBC 9.9 10x3/uL (4.8-10.8)
[2018-06-11 06:19] LABS: ALBUMIN 2.1 g/dL (3.4-5.0); ALKALINE PHOSPHATASE 111 U/L (46-116); ALT (SGPT) 31 U/L (10-68); BILIRUBIN - TOTAL 0.39 mg/dL (0.2-1.3); CALCIUM 8.3 mg/dL (8.5-10.1); CARBON DIOXIDE 26.5 mmol/L (21.0-32.0); CHLORIDE - SERUM 108 mmol/L (98-107); CREATININE - SERUM 0.4 mg/dL (0.6-1.3); GLUCOSE 122 mg/dL (74-106); PROTEIN - SERUM 5.6 g/dL (6.4-8.2); SODIUM 141 mmol/L (136-145); eGFR NON AFRICAN AMERICAN > 90 mL/min (90-120)
[2018-06-11 06:22] LABS: CALC OSMOLALITY 281 mosm/kg (275-300); POTASSIUM - SERUM 4.1 mmol/L (3.5-5.1); UREA NITROGEN 12 mg/dL (7-18)
--- NOTE | 2018-06-11 17:02 | MORECARE ---
CASE MANAGEMENT DISCHARGE SUMMARY PATIENT: BETTIE BERGERON UNIT: [id number] ADM DATE: 06/02/18 AGE: 68 : 51 SEX: F ROOM/BED: D.06 AUTHOR: LAURA,DOC PHYSICIAN: REFERRING PHYSICIAN: CHUCKY SHEPPARD MD DATE OF SERVICE: 06/11/18 Discharge Plan Patient Name: BETTIE BERGERON Facility: [facility]:[place] : 1950 Planned Disposition: Home Anticipated Discharge Date: Discharge Date: Expected LOS: Initial Reviewer: [email or web address] Initial Review Date: 06/09/2018 Generated: 06/11/18 6:01 pm Comments DCP- Discharge Planning Updated by [email or web address]: Mari Miller on 06/10/18 5:[address] LATE ENTRY 06/09/18 @ 0830 Patient Name: BETTIE BERGERON Admission Status: ER Accout number: [id number] Admission Date: 06-02-2018 : 1950 Admission Diagnosis:NON-ST ELEVATION (NSTEMI) MYOCARDIAL INFARCTION Attending: SILVER, Current LOS: 8 Anticipated DC Date: Planned Disposition: Home Primary Insurance: MEDICARE A & B Discharge Planning Comments: CM met with patient at bedside after explaining CM role and obtaining verbal consent. Patient lives at home alone and plans to return there upon discharge. Patient states she has family that lives close. CM discussed availability / needs of home health and medical equipment. Patient denies any discharge needs at this time. Patient states she will have family drive her home upon discharge. CM will continue to follow and assist as needed with discharge planning / needs. Personal Caregiver: Mari Miller DCPIA - Discharge Planning Initial Assessment Updated by [email or web address]: Mari Miller on 06/10/18 6:39 pm * Is the patient Alert and Oriented? Yes * How many steps to enter\exit or inside your home? * PCP PAULA * Pharmacy [facility] * Preadmission Environment Home Alone * ADLs Independent * Equipment None * List name and contact numbers for known caregivers / representatives who currently or will assist patient after discharge: TALHA FONG - BROTHER- [phone] LIU CHACKO - SISTER- [phone] * Verbal permission to speak to the caregivers and representatives has been obtained from the patient. N/A * Additional services required to return to the preadmission environment? No * Can the patient safely return to the preadmission environment? Yes * Has this patient been hospitalized within the prior 30 days at any hospital? No External Providers External Provider: [facility] Next Contact Date: Service Request Date: Service Type: Resolution: Reviewer: Comments: Last DP export: 06/10/18 5:49 p Patient Name: BETTIE BERGERON Page [id number] at 1702 All edits/amendments must be made on the electronic document DICTATION DATE: 06/11/181700 HEALTH EDUCATION AIDE: FREDERIC 06/11/181700 RPT#: [id number] DC DATE: STATUS: ADM IN [facility] [address] [place] [address] END OF REPORT
[2018-06-12] VITALS (24 sets, daily range): BP systolic 100–132; BP diastolic 46–70
[2018-06-12 06:04] LABS: HEMATOCRIT 32.7 % (36.0-48.0); HEMOGLOBIN 10.9 g/dL (12-16); MCH 29.9 pg (26.0-34.0); MCHC 33.3 g/dL (31.0-37.0); MCV 89.6 fL (80.0-100.0); MEAN PLATELET VOLUME 11.4 fL (7.4-10.4); RBC 3.65 10x6/uL (4.00-5.40); RDW 13.1 % (11.5-14.5); WBC 8.3 10x3/uL (4.8-10.8)
[2018-06-12 06:19] LABS: ALBUMIN 1.9 g/dL (3.4-5.0); ALKALINE PHOSPHATASE 129 U/L (46-116); ALT (SGPT) 37 U/L (10-68); BILIRUBIN - TOTAL 0.31 mg/dL (0.2-1.3); CALCIUM 8.4 mg/dL (8.5-10.1); CARBON DIOXIDE 27.5 mmol/L (21.0-32.0); CHLORIDE - SERUM 105 mmol/L (98-107); CREATININE - SERUM 0.5 mg/dL (0.6-1.3); GLUCOSE 101 mg/dL (74-106); POTASSIUM - SERUM 3.9 mmol/L (3.5-5.1); PROTEIN - SERUM 5.8 g/dL (6.4-8.2); SODIUM 139 mmol/L (136-145); eGFR NON AFRICAN AMERICAN > 90 mL/min (90-120)
[2018-06-12 06:21] LABS: CALC OSMOLALITY 279 mosm/kg (275-300); UREA NITROGEN 17 mg/dL (7-18)
[2018-06-13] VITALS (22 sets, daily range): BP systolic 101–126; BP diastolic 43–78
[2018-06-13 05:31] LABS: HEMOGLOBIN 11.6 g/dL (12-16); MCH 29.5 pg (26.0-34.0); MCHC 33.1 g/dL (31.0-37.0); MCV 89.1 fL (80.0-100.0); MEAN PLATELET VOLUME 10.8 fL (7.4-10.4); RBC 3.93 10x6/uL (4.00-5.40); WBC 7.7 10x3/uL (4.8-10.8)
[2018-06-13 06:21] LABS: ALBUMIN 1.9 g/dL (3.4-5.0); ALKALINE PHOSPHATASE 137 U/L (46-116); ALT (SGPT) 38 U/L (10-68); BILIRUBIN - TOTAL 0.38 mg/dL (0.2-1.3); CALC OSMOLALITY 277 mosm/kg (275-300); CALCIUM 8.6 mg/dL (8.5-10.1); CARBON DIOXIDE 27.1 mmol/L (21.0-32.0); CHLORIDE - SERUM 103 mmol/L (98-107); CREATININE - SERUM 0.5 mg/dL (0.6-1.3); POTASSIUM - SERUM 4.3 mmol/L (3.5-5.1); SODIUM 137 mmol/L (136-145); UREA NITROGEN 15 mg/dL (7-18); eGFR NON AFRICAN AMERICAN > 90 mL/min (90-120)
[2018-06-13 06:23] LABS: GLUCOSE 161 mg/dL (74-106)
[2018-06-14] VITALS (23 sets, daily range): BP systolic 94–148; BP diastolic 40–67
[2018-06-14 05:47] LABS: BASOPHILS 0.4 % (0-2); EOSINOPHILS 1.3 % (0-7); HEMATOCRIT 35.9 % (36.0-48.0); IMMATURE GRANULOCYTES 1.1 % (0-5); LYMPHOCYTES 18.7 % (15-50); MCH 29.9 pg (26.0-34.0); MCHC 33.4 g/dL (31.0-37.0); MCV 89.3 fL (80.0-100.0); MEAN PLATELET VOLUME 10.4 fL (7.4-10.4); MONOCYTES 11.1 % (2-11); NEUTROPHILS 67.4 % (40-80); PLATELET COUNT 357 10x3/uL (130-400); RBC 4.02 10x6/uL (4.00-5.40); WBC 7.6 10x3/uL (4.8-10.8)
[2018-06-14 06:06] LABS: CALC OSMOLALITY 276 mosm/kg (275-300); CALCIUM 8.8 mg/dL (8.5-10.1); CHLORIDE - SERUM 104 mmol/L (98-107); CREATININE - SERUM 0.6 mg/dL (0.6-1.3); POTASSIUM - SERUM 4.2 mmol/L (3.5-5.1); SODIUM 138 mmol/L (136-145); UREA NITROGEN 15 mg/dL (7-18); eGFR NON AFRICAN AMERICAN > 90 mL/min (90-120)
[2018-06-14 06:10] LABS: GLUCOSE 98 mg/dL (74-106)
[2018-06-15] VITALS (13 sets, daily range): BP systolic 99–122; BP diastolic 47–66
[2018-06-15 04:59] LABS: BASOPHILS 0.3 % (0-2); EOSINOPHILS 1.6 % (0-7); HEMATOCRIT 35.3 % (36.0-48.0); HEMOGLOBIN 11.6 g/dL (12-16); IMMATURE GRANULOCYTES 0.6 % (0-5); LYMPHOCYTES 12.7 % (15-50); MCH 29.7 pg (26.0-34.0); MCHC 32.9 g/dL (31.0-37.0); MCV 90.3 fL (80.0-100.0); MEAN PLATELET VOLUME 10.5 fL (7.4-10.4); MONOCYTES 8.1 % (2-11); NEUTROPHILS 76.7 % (40-80); PLATELET COUNT 374 10x3/uL (130-400); RBC 3.91 10x6/uL (4.00-5.40); RDW 13.3 % (11.5-14.5); WBC 9.8 10x3/uL (4.8-10.8)
[2018-06-15 05:09] LABS: CALC OSMOLALITY 280 mosm/kg (275-300); CALCIUM 8.9 mg/dL (8.5-10.1); CARBON DIOXIDE 29.6 mmol/L (21.0-32.0); CHLORIDE - SERUM 105 mmol/L (98-107); CREATININE - SERUM 0.7 mg/dL (0.6-1.3); GLUCOSE 92 mg/dL (74-106); POTASSIUM - SERUM 4.3 mmol/L (3.5-5.1); SODIUM 141 mmol/L (136-145); UREA NITROGEN 12 mg/dL (7-18); eGFR NON AFRICAN AMERICAN 88 mL/min (90-120)
--- NOTE | 2018-06-15 11:15 | MORECARE ---
CASE MANAGEMENT DISCHARGE SUMMARY PATIENT: BETTIE BERGERON UNIT: [id number] ADM DATE: 06/02/18 AGE: 68 : 51 SEX: F ROOM/BED: D.06 AUTHOR: LAURA,DOC PHYSICIAN: REFERRING PHYSICIAN: CHUCKY SHEPPARD MD DATE OF SERVICE: 06/15/18 Discharge Plan Patient Name: BETTIE BERGERON Facility: [facility]:[place] : 1950 Planned Disposition: Home Anticipated Discharge Date: Discharge Date: Expected LOS: Initial Reviewer: [email or web address] Initial Review Date: 06/09/2018 Generated: 06/15/18 12:15 pm Comments DCP- Discharge Planning Updated by [email or web address]: Mari Miller on 06/10/18 5:[address] LATE ENTRY 06/09/18 @ 0830 Patient Name: BETTIE BERGERON Admission Status: ER Accout number: [id number] Admission Date: 06-02-2018 : 1950 Admission Diagnosis:NON-ST ELEVATION (NSTEMI) MYOCARDIAL INFARCTION Attending: SILVER, Current LOS: 8 Anticipated DC Date: Planned Disposition: Home Primary Insurance: MEDICARE A & B Discharge Planning Comments: CM met with patient at bedside after explaining CM role and obtaining verbal consent. Patient lives at home alone and plans to return there upon discharge. Patient states she has family that lives close. CM discussed availability / needs of home health and medical equipment. Patient denies any discharge needs at this time. Patient states she will have family drive her home upon discharge. CM will continue to follow and assist as needed with discharge planning / needs. Boom Stick Man: Mari Miller DCPIA - Discharge Planning Initial Assessment Updated by [email or web address]: Mari Miller on 06/10/18 6:39 pm * Is the patient Alert and Oriented? Yes * How many steps to enter\exit or inside your home? * PCP PAULA * Pharmacy [facility] * Preadmission Environment Home Alone * ADLs Independent * Equipment None * List name and contact numbers for known caregivers / representatives who currently or will assist patient after discharge: TALHA FONG - BROTHER- [phone] LIU CHACKO - SISTER- [phone] * Verbal permission to speak to the caregivers and representatives has been obtained from the patient. N/A * Additional services required to return to the preadmission environment? No * Can the patient safely return to the preadmission environment? Yes * Has this patient been hospitalized within the prior 30 days at any hospital? No Last DP export: 06/11/18 4:02 p Patient Name: BETTIE BERGERON Page 18983 at 1115 All edits/amendments must be made on the electronic document DICTATION DATE: 06/15/181114 HEARING AND SPEECH ASSISTANT: DM 06/15/181114 RPT#: [id number] DC DATE: STATUS: ADM IN [facility] [address] [place] [address] END OF REPORT
[2018-06-15] MEDS ORDERED: LOPRESSOR25 MG PO (12:44)
[2018-06-15] MEDS ORDERED: LISINOPRIL5 MG PO (12:44)
[2018-06-15] MEDS ORDERED: ASPIRIN EC81 M1 PO (12:44)
[2018-06-15] MEDS ORDERED: AMIODARONE HCL200 MG PO (12:44)
[2018-06-15] MEDS ORDERED: COLACE100 MG PO (12:45)
--- NOTE | 2018-06-15 14:02 | MORECARE ---
CASE MANAGEMENT DISCHARGE SUMMARY PATIENT: BETTIE BERGERON UNIT: [id number] ADM DATE: 06/02/18 AGE: 68 : 51 SEX: F ROOM/BED: D.[facility] AUTHOR: LAURA,DOC PHYSICIAN: REFERRING PHYSICIAN: CHUCKY SHEPPARD MD DATE OF SERVICE: 06/15/18 Discharge Plan Patient Name: BETTIE BERGERON Facility: [facility]:[place] : 1950 Planned Disposition: Long Term Facility Anticipated Discharge Date: Discharge Date: 06/15/2018 Expected LOS: Initial Reviewer: [email or web address] Initial Review Date: 06/09/2018 Generated: 06/15/18 3:01 pm Comments DCP- Discharge Planning Updated by [email or web address]: Mari Miller on 06/15/18 12:[address] Patient Name: BETTIE BERGERON Encounter No: [id number] : 1950 Primary Insurance: MEDICARE A & B Anticipated DC Date: Planned Disposition: Home External Planned Provider: : D/C IMM EXPLAINED AND SERVED 06/15/18 @ 1255. FAMILY WILL TRANSPORT PATIENT TO [facility] IN [place] FOR LONG-TERM. DCP follow-up note: Patient and family in agreement with discharge plan. No changes to plan. Case management will follow and assist as needed. Mariclaudine Miller DCP- Discharge Planning Updated by [email or web address]: Mari Miller on 06/10/18 5:[address] LATE ENTRY 06/09/18 @ 0830 Patient Name: BETTIE BERGERON Admission Status: ER Accout number: [id number] Admission Date: 06-02-2018 : 1950 Admission Diagnosis:NON-ST ELEVATION (NSTEMI) MYOCARDIAL INFARCTION Attending: SILVER, Current LOS: 8 Anticipated DC Date: Planned Disposition: Home Primary Insurance: MEDICARE A & B Discharge Planning Comments: CM met with patient at bedside after explaining CM role and obtaining verbal consent. Patient lives at home alone and plans to return there upon discharge. Patient states she has family that lives close. CM discussed availability / needs of home health and medical equipment. Patient denies any discharge needs at this time. Patient states she will have family drive her home upon discharge. CM will continue to follow and assist as needed with discharge planning / needs. Cementer Machine: Mari Miller DCPIA - Discharge Planning Initial Assessment Updated by [email or web address]: Mari Miller on 06/10/18 6:39 pm * Is the patient Alert and Oriented? Yes * How many steps to enter\exit or inside your home? * PCP PAULA * Pharmacy [facility] * Preadmission Environment Home Alone * ADLs Independent * Equipment None * List name and contact numbers for known caregivers / representatives who currently or will assist patient after discharge: TALHA FONG - BROTHER- [phone] LIU CHACKO - SISTER- [phone] * Verbal permission to speak to the caregivers and representatives has been obtained from the patient. N/A * Additional services required to return to the preadmission environment? No * Can the patient safely return to the preadmission environment? Yes * Has this patient been hospitalized within the prior 30 days at any hospital? No Coverage Notice Reviewer: [email or web address] - Mari Miller Notice Issued Date-Time: 06/15/2018 12:55 Notice Type: IM Discharge Notice Notice Delivered To: Patient Relationship to Patient: Self Director Translation Name: Delivery Method: HAND - Hand Delivered Krista Days: Prior Verbal Notification: Recipient Understood Notice: Yes Recipient Signature: Yes Med Rec Note Co-signed by Attending: Coverage Notice Comment: Last DP export: 06/15/18 10:15 a Patient Name: BETTIE BERGERON Page [phone] at 1402 All edits/amendments must be made on the electronic document DICTATION DATE: 06/15/18 140 GUNSTOCK REPAIRER: FREDERIC 06/15/18 140 RPT#: [id number] DC DATE:06/15/18 STATUS: DIS IN [facility] [address] [place] [address] END OF REPORT
== END 2018-06-15 13:51 | DRG 233 ==
LOC: D.ER 17:08 → D.EDHOLD 19:35 → D.CVICU 19:35 → D.M2 19:35 → D.CVICU 06-08 09:27
PROVIDERS: Family Medicine; Internal Medicine Cardiovascular Disease; Internal Medicine Nephrology; Thoracic Surgery (Cardiothoracic Vascular Surgery); ADMIT Family Medicine; ATTEND Family Medicine
PROC: B2181ZZ Fluoroscopy of Left Internal Mammary Bypass Graft using Low Osmolar Contrast (ICD-10-PCS; 2018-06-04)
PROC: B2151ZZ Fluoroscopy of Left Heart using Low Osmolar Contrast (ICD-10-PCS; 2018-06-04)
PROC: 4A023N7 Measurement of Cardiac Sampling and Pressure, Left Heart, Percutaneous Approach (ICD-10-PCS; 2018-06-04)
PROC: B2111ZZ Fluoroscopy of Multiple Coronary Arteries using Low Osmolar Contrast (ICD-10-PCS; principal; 2018-06-04 09:44)
PROC: 021109W Bypass Coronary Artery, Two Arteries from Aorta with Autologous Venous Tissue, Open Approach (ICD-10-PCS; 2018-06-08)
PROC: 02100Z9 Bypass Coronary Artery, One Artery from Left Internal Mammary, Open Approach (ICD-10-PCS; 2018-06-08)
PROC: 06BP4ZZ Excision of Right Saphenous Vein, Percutaneous Endoscopic Approach (ICD-10-PCS; 2018-06-08)
PROC: 5A1221Z Performance of Cardiac Output, Continuous (ICD-10-PCS; 2018-06-08)
PROC: B245ZZ4 Ultrasonography of Left Heart, Transesophageal (ICD-10-PCS; 2018-06-08)
DX: I21.4 Non-ST elevation (NSTEMI) myocardial infarction (principal); J18.9 Pneumonia, unspecified organism; E11.65 Type 2 diabetes mellitus with hyperglycemia; I10 Essential (primary) hypertension; E78.5 Hyperlipidemia, unspecified; E87.6 Hypokalemia; I25.110 Atherosclerotic heart disease of native coronary artery with unstable angina pectoris; I69.934 Monoplegia of upper limb following unspecified cerebrovascular disease affecting left non-dominant side; E04.1 Nontoxic single thyroid nodule

== ENCOUNTER 2018-12-26 00:05 | Inpatient (IN) | payer MEDICARE, BC ==
[~2018-12-26] VITALS: Ht 167.6 cm; Wt 68.2 kg
--- NOTE | ~2018-12-26 | HEMODYNAMI ---
PATIENT:BETTIE BERGERON MEDICAL RECORD: [id number] : 52 LOCATION:[address] ADMISSION DATE: 12/26/18 Generatedon:12/27/201810:20 Patient name: BETTIE BERGERON Patient #: [id number] SSN: D OB: 1950 Date of study: 12/27/2018 Page: Of Hemodynamic Procedure Report Patient Data Patient Demographics Procedure consent was obtained First Name: BETTIE Gender: Female Last Name: RUBIO : 1950 Patient #: [id number] Age: 68 year(s) Race: Additional ID: [id number] Contact details Address: [address] [place] [address] State: [facility] Zip code: [address] Past Medical History Allergies: No known allergies Admission Admission Data Admission Date: 12/26/2018 Admission Time: 1:19 Room #: [facility] Lab Results Lab Result Date: 12/27/2018 Lab Result Time: 0:00 Biochemistry Name Units Result Min Max BUN mg/dl 18 --(---*)-- 7 18 Creatinine mg/dl 0.7 --(*---)-- 0.6 1.3 eGFR ml/min 88.12203 -*(----)-- 90 120 NONAFRICAN CBC Name Units Result Min Max Hematocrit % 44.3 --(*---)-- 42 54 Hemoglobin g/dl 14.7 --(-*--)-- 13.5 17.5 Procedure Procedure Types Cath Procedure Diagnostic Procedure LHC LHC w/Coronaries w/Grafts Sedation Charges Moderate Sedation up to 30 minutes PCI Procedure Coronary Stent Coronary Stent Initial Coronary Stent Additional Procedure Description Procedure Date Procedure Date: 12/27/2018 Procedure Start Time: 9:34 Procedure End Time: 10:17 Procedure Staff Name Function Jovi Rios MD Performing Physician Elaine Siddiqui RT Monitor Melissa Ga RT Scrub Elvin Almeida RN Nurse Juan Richardson RT Cabin Outfitter Procedure Data Cath Procedure Fluoroscopy Diagnostic fluoroscopy Total fluoroscopy Time: time: 12.5 min 12.5 min Diagnostic fluoroscopy Total fluoroscopy dose: dose: 1504 mGy 1504 mGy Contrast Material Contrast Material Type Amount (ml) Isovue 300 252 Entry Location Entry Primary Successful Side Size Upsize Upsize Entry Closure Succes sful Closure Location (Fr) 1 (Fr) 2 (Fr) Remarks Device Remarks Femoral Right 5 Fr 6 Fr Exoseal artery Short Estimated blood loss: 10 ml Diagnostic catheters Device Type Used For End Catheter Placement MULTIPACK JL 4.0 5Fr Procedure catheter MULTIPACK 3DRC 5Fr Procedure catheter MULTIPACK Pigtail 5 Fr Procedure catheter Procedure Complications No complications Procedure Medications Medication Administration Route Dosage Oxygen etCO2 Nasal cannula 2 l/min Lidocaine 2% added to field 20 Heparin Flush Bag added to field 2 bags (1000units/500ml NS) 0.9% NaCl I.V. 100 ml/hr Versed I.V. 1 mg Fentanyl I.V. 50 mcg Versed I.V. 1 mg Fentanyl I.V. 50 mcg Fentanyl I.V. 50 mcg Heparin Bolus I.V. 4000 units Fentanyl I.V. 50 mcg Hemodynamics Rest HGB: 14.7 (g/dl) Heart Rate: 107 (bpm) Pressure Samples Time Site Value (mmHg) Purpose Heart Use Rate(bpm) 9:43 LV 96/3,6 Snapshot 99 9:43 AO 103/66(82) Pullback 101 9:43 LV 100/1,1 Pullback 101 Gradients Valve Time Site 1 Site 2 Mean SEP/DFP Peak To Heart Use (mmHg) (sec/min) Peak Rate (mmHg) (bpm) Aortic 9:43 LV AO 0 11 0 101 100/1,1 103/66(82) Calculations Valve P-P Mean Valve Index Valve Source Name Gradient Area Flow (cm2) Aortic 0 0 0 0 Snapshots Pre Cath Intra NCS Post Cath Vital Signs Time Heart Resp SPO2 etCO2 NIBP (mmHg) Rhythm Pain Sedation Rate (ipm) (%) (mmHg) Status Level (bpm) 9:26:59 109 14 98 0 140/96(115) NSR 0 (11) 10(A) , No pain 9:31:09 106 10 96 0 110/74(90) NSR 0 (11) 10(A) , No pain 9:35:15 104 12 96 0 113/72(82) NSR 0 (11) 10(A) , No pain 9:39:23 63 14 96 0 105/67(87) NSR 0 (11) 9(A) , No pain 9:43:26 98 15 95 0 115/73(84) NSR 0 (11) 9(A) , No pain 9:47:34 100 14 95 0 111/69(81) NSR 0 (11) 9(A) , No pain 9:51:40 95 16 96 0 97/62(76) NSR 0 (11) 9(A) , No pain 9:55:46 100 14 96 0 102/59(73) NSR 0 (11) 9(A) , No pain 9:59:50 99 16 96 0 97/60(72) NSR 0 (11) 9(A) , No pain 10:03:53 96 14 96 0 91/60(73) NSR 0 (11) 9(A) , No pain 10:07:57 82 13 96 0 88/55(75) NSR 0 (11) 9(A) , No pain 10:12:40 101 16 96 0 108/67(80) NSR 0 (11) 10(A) , No pain 10:16:43 103 9 96 0 102/70(86) NSR 0 (11) 10(A) , No pain Medications Time Medication Route Dose Verified Delivered Reason Notes Effectiveness by by 9:24:42 Oxygen etCO2 2 Jovi Oconnor used for Nasal l/min St Balaji Almeida RN procedure cannula 9:24:48 Lidocaine 2% added 20ml Jovi Espana for local to vial [facility] anesthetic field MD AQUINO 9:25:02 Heparin Flush added 2 Jovi Jovi used for Bag to bags [facility] procedure (1000units/500ml field MD AQUINO NS) 9:25:12 0.9% NaCl I.V. 100 Jovi Oconnor Per physician ml/hr St Balaji Almeida RN, MD 9:32:25 Versed I.V. 1 mg Jovi Bartolomeie for sedation [facility] Balaji Almeida RN, MD 9:32:31 Fentanyl I.V. 50 Jovi Bartolomeie for sedation mcg [facility] Balaji Almeida RN, MD 9:37:01 Versed I.V. 1 mg Jovi Mancusoie for sedation [facility] Balaji Almeida RN, MD 9:37:04 Fentanyl I.V. 50 Jovi Oconnor for sedation mcg [facility] Balaji Almeida RN, MD 9:44:04 Fentanyl I.V. 50 Jovi Oconnor for sedation mcg [facility] Balaji Almeida RN, MD 9:46:44 Heparin Bolus I.V. 4000 Jovi Oconnor for verifi ed units [facility] Balaji Almeida RN anticoagulation with dr MD rios 9:52:00 Fentanyl I.V. 50 Jovi Oconnor for sedation mcg [address] Balaji Almeida RN, MD Procedure Log Time Note 9:00:54 Elvin Almeida RN sent for patient. Start room use. 9:09:28 Informed consent obtained and on chart 9:09:52 Procedure Status Urgent Heart Cath (IP). 9:09:55 Time tracking: Call back (After hours or weekends) 9:09:58 Plan of Care:Hemodynamics will remain stable., Cardiac rhythm will remain stable., Comfort level will be maintained., Respiratory function will remain adequate., Patient/ family verbilizes understanding of procedure., Procedure tolerated without complication., Recovers from procedure without complications.. 9:10:18 H&P Date Dictated: 12/27/2018 ER History on chart.. 9:10:20 Family in patients room. 9:10:27 Patient allergic to No known allergies 9:11:01 Lab Result : BUN 18 mg/dl 9:11:01 Lab Result : Creatinine 0.7 mg/dl 9:11:01 Lab Result : eGFR NONAFRICAN 88.45629 ml/min 9:11:01 Lab Result : Hemoglobin 14.7 g/dl 9:11:01 Lab Result : Hematocrit 44.3 % 9:14:12 Risk of Mortality: .7 9:14:15 Risk of blood transfusion: 2.3 9:14:18 Risk of BUSHRA: 2.4 9:14:37 Patient received from Med II to CCL 1 Alert and oriented. Tansferred to table in Supine position. 9:14:39 Warm blankets applied, and yanna hugger turned on for patient comfort. 9:14:39 Correct patient and procedure confirmed by team. 9:14:40 ECG and BP/O2 sat monitors applied to patient. 9:24:42 Oxygen 2 l/min etCO2 Nasal cannula was administered by Elvin Almeida RN; used for procedure; Verbal order read back and verified. 9:24:48 Lidocaine 2% 20ml vial added to field was administered by Jovi Rios MD; for local anesthetic; Verbal order read back and verified. 9:25:02 Heparin Flush Bag (1000units/500ml NS) 2 bags added to field was administered by Jovi Rios MD; used for procedure; Verbal order read back and verified. 9:25:12 0.9% NaCl 100 ml/hr I.V. was administered by Elvin Almeida RN; Per physician; Verbal order read back and verified. 9:25:56 Vital chart was started 9:26:03 Baseline sample Acquired. 9:26:06 Rhythm: 1st degree heart block, atrial flutter 9:26:07 Full Disclosure recording started 9:26:08 Pre-op teaching completed and patient verbalized understanding. 9:26:08 Pre-procedure instructions explained to patient. 9:26:12 Is patient on blood thinner? yes. plavix daily. has has dose today 9:26:14 Patient diabetic? Yes. 9:26:17 If diabetic: On Metformin? Yes 9:26:20 If on Metformin: Last Dose? 12/25/2018 9:26:23 Patient not . Patient is over age 55. 9:26:25 Previous problem with sedation/anesthesia? No ? 9:26:27 Snore? Yes 9:26:28 Sleep apnea? No 9:26:30 Deviated septum? No 9:26:31 Opens mouth fully? Yes 9:26:32 Sticks out tongue? Yes 9:26:33 Airway obstruction? No ? 9:26:35 Dentures? No ? 9:26:46 Pre procedure: right dorsailis pedis pulse Doppler 9:26:50 Patient pain scale 0/10 ?. 9:26:57 IV patent on arrival in right wrist with 0.9% NaCl at [facility]. 9:27:01 Lab results completed and on chart. 9:27:06 Right groin area was prepped with chlora-prep and draped in sterile fashion 9:27:06 Alarms reviewed by R. N. 9:27:06 Sharps counted by scrub and verified by R.N. 9:27:09 Use device set Femoral Dx 9:27:10 ACIST Syringe (77777) opened to sterile field. 9:27:11 Bag Decanter () opened to sterile field. 9:27:12 ACIST Hand Control (95547) opened to sterile field. 9:27:12 ACIST Manifold (95768) opened to sterile field. 9:27:13 Tegaderm 4 x 4 (1626W) opened to sterile field. 9:27:14 Medline Cath Pack ([id number]) opened to sterile field. 9:27:15 DIAGNOSTIC Multipack 5Fr catheter set ([id number]) opened to sterile field. 9:27:16 SHEATH 5FR [place] (LVB678) opened to sterile field. 9:27:16 EMERALD Guide Wire (826-669) opened to sterile field. 9:27:29 IV Extension Set opened to sterile field. 9::42 --------ALL STOP TIME OUT------ ::42 Final Timeout: patient, procedure, and site verified with staff and physician. All members of the team are in agreement. 9:31:44 Right groin site verified by team. 9:31:47 Fire Safety Assessment: A--An alcohol-based skin anteseptic being used preoperatively., C--Open oxygen or nitrous oxide is being used., D--An ESU, laser, or fiber-optic light is being used. 9:31:52 Physical assessment completed. ASA score P 2 - A patient with mild systemic disease as per Jovi Rios MD. 9:31:56 2) 60-89 Mildly reduced kidney function, and other findings (as for stage 1) point to kidney disease. 9:32:00 Maximum allowable contrast dose (3.7 X eGFR X 0.75)244 ml. 9:32:02 Sedation plan: IV Moderate Sedation Medication:Versed, Fentanyl 9:32:25 Versed 1 mg I.V. was administered by Elvin Almeida RN; for sedation; Verbal order read back and verified. 9:32:31 Fentanyl 50 mcg I.V. was administered by Elvin Almeida RN; for sedation; Verbal order read back and verified. 9:34:11 Procedure started. 9:34:15 Local anesthetic to right femoral artery with Lidocaine 2% by Jovi Rios MD.INITIAL ACCESS ONLY 9:36:25 A 5 Fr sheath was inserted into the Right Femoral artery 9:36:31 A MULTIPACK JL 4.0 5Fr catheter was advanced over the wire and used for Procedure. 9:37:01 Versed 1 mg I.V. was administered by Elvin Almeida RN; for sedation; Verbal order read back and verified. 9:37:04 Fentanyl 50 mcg I.V. was administered by Elvin Almeida RN; for sedation; Verbal order read back and verified. 9:38:21 LCA angiography performed. 9:39:23 Catheter removed. 9:39:27 A MULTIPACK 3DRC 5Fr catheter was advanced over the wire and used for Procedure. 9:40:19 RCA angiography performed. 9:41:41 SANDS to LAD angiography performed. 9:41:46 Catheter removed. 9:41:52 A MULTIPACK Pigtail 5 Fr catheter was advanced over the wire and used for Procedure. 9:42:33 LV gram done using ORDOÑEZ 9:42:38 Injector settings: Ml/sec: 10, Volume: 20, 9:43:29 LV hemodynamics recorded. 9:43:43 EF : 55 % 9:43:48 Aortic Root visualized 9:44:04 Fentanyl 50 mcg I.V. was administered by Elvin Almeida RN; for sedation; Verbal order read back and verified. 9:44:36 Catheter removed. 9:45:45 SHEATH 6FR [place] (EXC077) opened to sterile field. 9:45:45 WHISPER 300cm guide wire ([id number]) opened to sterile field. 9:45:46 INFLATOR Merit BasixCompak (UU0722) opened to sterile field. 9:46:35 GUIDE 6FR EBU 3.5 catheter ([id number]) opened to sterile field. 9:46:44 Heparin Bolus 4000 units I.V. was administered by Elvin Almeida RN; for anticoagulation; verified with dr rios Verbal order read back and verified. 9:46:44 ACCDominant side:Right 9:46:46 Proceeding to intervention. 9:46:49 Sheath upsized to a 6 Fr Short. 9:46:58 Pre PCI Site: [place] mCirc has 80-90% stenosis. 9:47:06 6 Fr EBU 3.5 guide catheter was inserted over the wire 9:48:46 WHISPER 300 wire advanced. 9:51:20 Inflate balloon Inflation number: 2 A EMERGE OTW 2.0 x 15 balloon ([id number]) was prepped and advanced across the 1st Ob Makeda , then inflated to 10 SIDNEY for 0:15 (min:sec) . 9:52:00 Fentanyl 50 mcg I.V. was administered by Elvin Almeida RN; for sedation; Verbal order read back and verified. 9:52:20 Inflation number: 1 The EMERGE OTW 2.0 x 15 balloon ([id number]) was reinflated across the 1st Ob Makeda , to 10 SIDNEY for 0:15 (min:sec) . 9:53:11 Balloon removed over the wire. 9:56:57 Place stent Inflation Number: 3 A BEATA OTW 2.5 x 15 stent ([id number]) was prepped and advanced across the 1st Ob Makeda . The stent was deployed at 14 SIDNEY for 0:10 (min:sec) . 9:57:51 Stent catheter was removed intact over wire. 10:01:55 Place stent Inflation Number: 1 A BEATA OTW 2.5 x 22 stent ([id number]) was prepped and advanced across the Mid CX . The stent was deployed at 14 SIDNEY for 0:10 (min:sec) . 10:01:58 Stent catheter was removed intact over wire. 10:04:07 Wire removed. 10:04:12 WHISPER 300cm guide wire ([id number]) opened to sterile field. 10:04:32 NEW WIRE NEEDED. WHISPER 300 ADVANCED 10:06:11 Wire advanced across lesion. 10:07:16 Inflate balloon Inflation number: 2 A EMERGE OTW 2.5 x 8 balloon ([id number]) was prepped and advanced across the Mid CX , then inflated to 8 SIDNEY for 0:10 (min:sec) . 10:07:42 Inflation number: 3 The EMERGE OTW 2.5 x 8 balloon ([id number]) was reinflated across the Mid CX , to 6 SIDNEY for 0:10 (min:sec) . 10:08:23 Inflation number: 4 The EMERGE OTW 2.5 x 8 balloon ([id number]) was reinflated across the Mid CX , to 8 SIDNEY for 0:10 (min:sec) . 10:08:27 Balloon removed over the wire. 10:08:48 Wire removed. 10:08:48 Guide catheter removed. 10:09:41 EXOSEAL 6Fr (EX600) opened to sterile field. 10:09:52 Sheath removed intact; hemostasis achieved with Exoseal to the Right Femoral artery. 10:09:57 Procedure ended.(Physican Out) 10:10:07 Contrast amount:Isovue 300 252ml. 10:10:09 Maximum allowable dose exceeded? Yes. 10:10:10 Sharps counted by scrub and verified by R.N. 10:10:14 Fluoroscopy time 12.50 minutes. 10:10:24 Flurop Dose total: 1504 10:10:24 Fluoroscopy dose: 1504 mGy 10:11:59 ACT drawn and resulted at 233 seconds. (normal therapeutic range 180-240 seconds). 10:13:14 Post-op/insertion site Right Femoral artery dressed using a 4 x 4 and Tegaderm. 10:13:16 Post-procedure physical assessment completed. ASA score P 2 - A patient with mild systemic disease as per Jovi Rios MD. 10:13:18 Post procedure rhythm: unchanged. 10:13:22 Estimated blood loss: 10 ml 10:13:23 Post procedure instruction explained to patient.Patient verbalizes understanding. 10:13:24 Patient needs reinforcement of post procedure teaching. 10:13:57 Procedure type changed to Cath procedure, Diagnostic procedure, LHC, LHC w/Coronaries w/Grafts, Sedation Charges, Moderate Sedation up to 30 minutes, PCI procedure, Coronary Stent, Coronary Stent Initial, Coronary Stent Additional 10:17:19 Procedure and supply charges have been captured, reviewed, submitted and are correct. 10:17:22 Procedure Complication : No complications 10:17:24 Vital chart was stopped 10:17:27 [facility] Findings: MVD- PCI performed (see procedure note) 10:17:29 Operative report dictated upon procedure completion. 10:17:30 See physician's report for complete and final results. 10:17:33 Report given to [facility]. 10:17:35 Patient transfered to [facility] with Bed. 10:17:37 Procedure ended. 10:17:37 Full Disclosure recording stopped 10:17:44 End room use (Document Last) Intervention Summary Intervention Notes Time ActionType Lesion and Equipment Action# Pressure Duration Attributes Used 9:51:20 Inflate 1st Ob Makeda EMERGE OTW 2 10 00:15 balloon 2.0 x 15 balloon ([id number]) 9:52:20 Reinflate 1st Ob Makeda EMERGE OTW 1 10 00:15 balloon 2.0 x 15 balloon ([id number]) 9:56:57 Place stent 1st Ob Makeda BEATA OTW 2.5 3 14 00:10 x 15 stent ([id number]) 10:01:55 Place stent Mid CX BEATA OTW 2.5 1 14 00:10 x 22 stent ([id number]) 10:07:16 Inflate Mid CX EMERGE OTW 2 8 00:10 balloon 2.5 x 8 balloon ([id number]) 10:07:42 Reinflate Mid CX EMERGE OTW 3 6 00:10 balloon 2.5 x 8 balloon ([id number]) 10:08:23 Reinflate Mid CX EMERGE OTW 4 8 00:10 balloon 2.5 x 8 balloon ([id number]) Device Usage Item Name Manufacture Quantity Catalog Number [facility] Lot# / Charge Number Stock Stock Serial# Code ACIST Syringe Acist 1 50603 525574 312103 211674 20 (53389) Medical Systems Inc Bag Decanter Microtek 1 679834 12468 243056 5 () Medical Inc. ACIST Hand Acist 1 70518 581922 872316 171758 5 Control Medical (77056) Systems Inc ACIST Acist 1 82259 395041 858155 508884 5 Manifold Medical (91113) Systems Inc Tegaderm 4 x 3M 1 1626W 703770 646870 784303 5 4 (1626W) Medline Cath Medline 1 [id number] 586225 79331 958848 5 Pack ([id number]) DIAGNOSTIC Cardinal 1 DL8880 147769 04345 255790 30 Multipack 5Fr Health catheter set (LE3839) SHEATH 5FR Terumo 1 VEO479 074149 018989 892057 5 [place] (SBL901) EMERALD Guide Cardinal 1 502-455 196900 008544 824288 5 Wire Health (502-295) IV Extension Hospira 1 76182-59 804584 22501 537188 5 Set MULTIPACK JL Cardinal 1 759155 5 4.0 5Fr Health catheter MULTIPACK Cardinal 1 269152 5 3DRC 5Fr Health catheter MULTIPACK Cardinal 1 631363 5 Pigtail 5 Fr Health catheter SHEATH 6FR Terumo 1 KIQ961 969831 834011 215943 40 [place] (UFB587) WHISPER 300cm [place] 2 [id number] 786904 980803 139482 5 guide wire Vascular ([id number]) INFLATOR Merit 1 NV3892 202082 447346 465626 15 [facility] Medical BasixCompak (WB0976) GUIDE 6FR EBU Medtronic 1 [id number] 928143 15839 071081 3 3.5 catheter ([id number]) EMERGE OTW [place] 1 [id number] 057402 047042 655010 5 [id number] 2.0 x 15 Scientific balloon ([id number]) BEATA OTW 2.5 Medtronic 1 [id number] 846676 18069 391555 5 [id number] x 15 stent ([id number]) BEATA OTW 2.5 Medtronic 1 [id number] 583115 02510 621380 5 [id number] x 22 stent ([id number]) EMERGE OTW [place] 1 [id number] 715520 213670 934747 5 [id number] 2.5 x 8 Scientific balloon ([id number]) EXOSEAL 6Fr Cardinal 1 EX600 367973 323022 054553 10 (EX600) Health Signature Audit [place] Stage Time Signature Unsigned Intra-Procedure 12/27/2018 Elaine Siddiqui 10:19:18 AM RT(R) Intra-Procedure 12/27/2018 Elvin Almeida RN 10:19:40 AM Intra-Procedure 12/27/2018 Jovi Mascorro 10:20:21 AM Balaji AQUINO [place] [id number] [place] [id number]
--- NOTE | ~2018-12-26 | HEMODYNAMI ---
PATIENT:BETTIE BERGERON MEDICAL RECORD: [id number] : 52 LOCATION:[facility] D.2117 ADMISSION DATE: 12/26/18 Generatedon:12/28/201810:05 Patient name: BETTIE BERGERON Patient #: [id number] SSN: D OB: 1950 Date of study: 12/28/2018 Page: Of Hemodynamic Procedure Report Patient Data Patient Demographics Procedure consent was obtained First Name: BETTIE Gender: Female Last Name: RUBIO : 1950 Patient #: [id number] Age: 68 year(s) Race: Accession #: Ethnicity: or [id number] Additional ID: [id number] Contact details Address: [address] [place] [address] State: [place] City: [place] Zip code: [address] Past Medical History Allergies: No known allergies Admission Admission Data Admission Date: 12/26/2018 Admission Time: 1:19 Room #: D.2117 Lab Results Lab Result Date: 12/27/2018 Lab Result Time: 0:00 Biochemistry Name Units Result Min Max BUN mg/dl 18 --(---*)-- 7 18 Creatinine mg/dl 0.7 --(*---)-- 0.6 1.3 eGFR ml/min 88.08364 -*(----)-- 90 120 NONAFRICAN CBC Name Units Result Min Max Hematocrit % 44.3 --(*---)-- 42 54 Hemoglobin g/dl 14.7 --(-*--)-- 13.5 17.5 Procedure Procedure Types Cath Procedure Diagnostic Procedure Cardioversion External PILY Procedure Description Procedure Date Procedure Date: 12/28/2018 Procedure Start Time: 9:48 Procedure End Time: 10:03 Procedure Staff Name Function Jovi Rios MD Performing Physician Ramone Sales CRNA Additional personnel Elaine Siddiqui RT Monitor Ofelia Brownlee RN Nurse Anthony De Leon Supervisor Extrusion Procedure Data Cath Procedure Fluoroscopy Diagnostic fluoroscopy Total fluoroscopy Time: 0 time: 0 min min Diagnostic fluoroscopy Total fluoroscopy dose: 0 dose: 0 mGy mGy Estimated blood loss: 0 ml Procedure Complications No complications Procedure Medications Medication Administration Route Dosage 0.9% NaCl I.V. 100 ml/hr Oxygen etCO2 Nasal cannula 2 l/min Refer to Anesthesia Notes for Sedation Medications Hurricaine Huger P.O. 2 Sprays Hemodynamics Rest HGB: 14.7 (g/dl) Heart Rate: 105 (bpm) Snapshots Pre Cath Intra NCS Post Cath Vital Signs Time Heart Resp SPO2 etCO2 NIBP Rhythm Pain Sedation Rate (ipm) (%) (mmHg) (mmHg) Status Level (bpm) 9:46:44 105 23 100 27 99/67(86) A-Flutter 0 (11) 10(A) , No pain 9:50:47 92 16 99 21.5 109/66(88) A-Flutter 0 (11) 5(A) , No pain 9:54:59 58 17 99 28.7 82/52(64) SB 0 (11) 5(A) , No pain 9:59:01 58 16 98 26 79/45(64) SB 0 (11) 5(A) , No pain 10:02:58 61 20 97 26.3 93/62(73) SB 0 (11) 5(A) , No pain Medications Time Medication Route Dose Verified Delivered Reason Notes Effective ness by by 9:46:29 0.9% NaCl I.V. 100 Jovi Ofelia used for ml/hr St Balaji Brownlee procedure MD ARCHER 9:46:36 Oxygen etCO2 2 Jovi Ofelia used for Nasal l/min St Balaji Brownlee procedure cannula MD ARCHER 9:46:46 Refer to Jovi Pack for Anesthesia [facility] sedation Notes for MD RITTER Sedation Medications 9:47:05 Hurricaine P[address]O. 2 Jovi Ofelia Per Huger Sprays St Balaji Brownlee physician customs entry clerk Log Time Note 9:24:54 Informed consent obtained and on chart 9:25:18 Procedure Status Urgent Heart Cath (IP). 9:25:18 Time tracking: Regular hours (M-F 7:00 - 5:00) 9:25:21 Plan of Care:Hemodynamics will remain stable., Cardiac rhythm will remain stable., Comfort level will be maintained., Respiratory function will remain adequate., Patient/ family verbilizes understanding of procedure., Procedure tolerated without complication., Recovers from procedure without complications.. 9:25:23 Ofelia Brownlee RN sent for patient. Start room use. 9:25:29 H&P Date Dictated: 12/28/2018 New H&P dictated by physician.. 9:25:36 Patient allergic to No known allergies 9:38:33 Ramone Sales CRNA present and monitoring patient for TIVA. 9:39:16 Patient arrived from Pre/Post Procedure Room to CCL 3. Patient remains on bed/stretcher for procedure. 9:39:18 Warm blankets applied, and yanna hugger turned on for patient comfort. 9:39:19 Correct patient and procedure confirmed by team. 9:39:19 ECG and BP/O2 sat monitors applied to patient. 9:39:21 Pre-procedure instructions explained to patient. 9:39:21 Pre-op teaching completed and patient verbalized understanding. 9:39:24 Family unavailable. 9:39:25 Patient NPO since Midnight. 9:40:36 Is patient on blood thinner?Yes 9:40:39 ACC The patient was administered the following blood thiners within the last 24 hours: ACCPlavix 9:40:40 Patient diabetic? Yes. 9:40:52 If diabetic: On Metformin? Yes 9:40:59 Anthony De Leon Slice Cutting Machine Operator Helper present for PILY. 9:41:01 Previous problem with sedation/anesthesia? No ? 9:41:02 Snore? Yes 9:41:03 Sleep apnea? No 9:41:03 Deviated septum? No 9:41:04 Opens mouth fully? Yes 9:41:10 Sticks out tongue? Yes 9:41:12 Airway obstruction? No ? 9:41:15 Dentures? No ? 9:42:29 IV patent on arrival in right wrist with 0.9% NaCl at KVO. 9:42:58 Quick Combo opened to sterile field. 9:43:08 Lab results completed and on chart. 9:43:12 Alarms reviewed by R. N. 9:43:12 Sharps counted by scrub and verified by R.N. 9:45:40 Vital chart was started 9:45:42 Full Disclosure recording started 9:45:46 Rhythm: atrial flutter 9:46:26 Baseline sample Acquired. 9:46:29 0.9% NaCl 100 ml/hr I.V. was administered by Ofelia Brownlee RN; used for procedure; Verbal order read back and verified. 9:46:36 Oxygen 2 l/min etCO2 Nasal cannula was administered by Ofelia Brownlee RN; used for procedure; Verbal order read back and verified. 9:46:46 Refer to Anesthesia Notes for Sedation Medications was administered by Ramone Sales CRNA; for sedation; Verbal order read back and verified. 9:47:00 --------ALL STOP TIME OUT------ 9:47:01 Final Timeout: patient, procedure, and site verified with staff and physician. All members of the team are in agreement. 9:47:05 Hurricaine Huger 2 Sprays P.O. was administered by Ofelia Brownlee RN; Per physician; Verbal order read back and verified. 9:47:26 Physical assessment completed. ASA score P 3 - A patient with severe systemic disease as per Jovi Rios MD. 9:47:32 Sedation plan: TIVA Medication:Propofol 9:48:32 Procedure started. 9:48:34 PILY 9:49:28 PILY started. 9:53:13 PILY completed. 9:53:15 ------Cardioversion------ 9:53:16 Quick combo pads placed on patients chest and back. 9:53:32 Defibrillator synced and charged to 200 Joules. 9:53:57 Shock delivered. 9:54:25 Patient cardioverted to sinus bradycardia. 9:54:33 Procedure ended.(Physican Out) 9:55:06 Fluoroscopy time 00.00 minutes. 9:55:07 Flurop Dose total: 0 9:55:07 Fluoroscopy dose: 0 mGy 9:55:09 Dose Area Product 0 mGy/cm. 9:55:17 Post-procedure physical assessment completed. ASA score P 3 - A patient with severe systemic disease as per Jovi Rios MD. 9:55:21 Post procedure rhythm: sinus bradycardia 9:55:23 Estimated blood loss: 0 ml 9:55:24 Post procedure instruction explained to patient.Patient verbalizes understanding. 9:55:24 Patient needs reinforcement of post procedure teaching. 9:55:53 Procedure and supply charges have been captured, reviewed, submitted and are correct. 9:55:55 Procedure Complication : No complications 9:59:28 PILY Findings: PILY w/ cardioversion: no left atrial clot noted (proceed with cardioversion) 9:59:29 Operative report dictated upon procedure completion. 9:59:30 See physician's report for complete and final results. 9:59:32 Report given to [facility]. 9:59:36 Patient transfered to [facility] with Bed. 10:03:10 Vital chart was stopped 10:03:13 Procedure ended. 10:03:13 Full Disclosure recording stopped 10:04:22 End room use (Document Last) 10:04:35 End room use (Document Last) 10:05:25 End room use (Document Last) Device Usage Item Manufacture Quantity Catalog Hospital Part Current Minimal Lot# / Name Number Charge Number Stock Stock Lawanda ak# Code [employer] 1 [id number] Combo Signature Audit [place] Stage Time Signature Unsigned Intra-Procedure 12/28/2018 Elaine Siddiqui 10:04:35 AM RT(R) Intra-Procedure 12/28/2018 Ofelia Brownlee 10:05:25 AM RN Intra-Procedure 12/28/2018 Jovi Mascorro 10:05:54 AM Balaji AQUINO [facility] [address] [place] [address]
[~2018-12-26 00:05] MED LIST: ACCUPRIL20 MG PO; AMIODARONE HCL200 MG PO; ASPIRIN EC81 M1 PO; COLACE100 MG PO; GLUCOPHAGE1000 MG PO; HUMALOG 30100 UNITS/ SC; LANTUS SOL100 UNIT/1 SC; LIPITOR40 MG PO; LISINOPRIL5 MG PO; LOPRESSOR25 MG PO; PLAVIX75 MG PO
[2018-12-26 00:58] LABS: CKMB 1.8 U/L (0.0-3.6); CREATINE KINASE 31 UL (21-215); GLUCOSE 206 mg/dL (74-106); PRO BNP 1130 pg/mL (0-125); THYROID STIMULATING HORMONE 1.57 uIU/mL (0.36-3.74)
[2018-12-26 00:59] LABS: TROPONIN-I 0.462 ng/mL (0.000-0.060)
[2018-12-26] MEDS ORDERED: LANTUS SOL100 UNIT/1 SC (02:00)
[2018-12-26] MEDS ORDERED: DONEPEZIL HCL5 MG PO (02:01)
[2018-12-26 02:12] VITALS: BP 118/73; BMI 24.2
[2018-12-26 04:00] VITALS: BP 128/68
--- NOTE | 2018-12-26 06:10 | NUR ---
PATIENT PULLED OUT HER IV. PATIENT REFUSES IV ACCESS AT THIS TIME. WILL HAVE AM SHIFT TRY ANOTHER ATTEMPT.
[2018-12-26 09:14] LABS: HEMATOCRIT 43.6 % (36.0-48.0); HEMOGLOBIN 14.5 g/dL (12-16); LYMPHOCYTES 20.7 % (15-50); MCH 28.9 pg (26.0-34.0); MCHC 33.3 g/dL (31.0-37.0); MCV 86.9 fL (80.0-100.0); MEAN PLATELET VOLUME 11.4 fL (7.4-10.4); NEUTROPHILS 69.3 % (40-80); PLATELET COUNT 216 10x3/uL (130-400); RBC 5.02 10x6/uL (4.00-5.40); RDW 13.3 % (11.5-14.5); WBC 6.9 10x3/uL (4.8-10.8)
[2018-12-26 09:20] VITALS: BP 124/73
[2018-12-26 09:26] LABS: ALT (SGPT) 15 U/L (10-68); CALC OSMOLALITY 275 mosm/kg (275-300); CALCIUM 8.8 mg/dL (8.5-10.1); CARBON DIOXIDE 27.4 mmol/L (21.0-32.0); CHLORIDE - SERUM 103 mmol/L (98-107); CHOL - HDL RATIO 5.3 ratio (2.3-4.1); CHOLESTEROL, TOTAL 153 mg/dL (0-200); CREATININE - SERUM 0.8 mg/dL (0.6-1.3); GLUCOSE 162 mg/dL (74-106); HDL CHOLESTEROL 29 mg/dL (32-96); LDL CHOLESTEROL 99 mg/dL (0-100); LDL-HDL RATIO 3.4 ratio (1.5-3.5); POTASSIUM - SERUM 3.5 mmol/L (3.5-5.1); SODIUM 135 mmol/L (136-145); TRIGLYCERIDE 129 mg/dL (30-200); UREA NITROGEN 18 mg/dL (7-18); eGFR NON AFRICAN AMERICAN 76 mL/min (90-120)
--- NOTE | 2018-12-26 10:16 | NUR ---
TELEMETRY STJames REFUSES TO SIGN FOR [facility] AT THIS TIME, ASKING ME TO LEAVE HER ALONE. WILL CONT. TO MONITOR.
[2018-12-26 11:47] VITALS: Ht 167.6 cm; Wt 68.2 kg
--- NOTE | 2018-12-26 12:15 | NUR ---
AWAKE AND ALLERT NOW, CONSENTS SIGNED FOR [facility]. WILL CONT. PLAN OF CARE.
[2018-12-26 13:41] LABS: CKMB 1.2 U/L (0.0-3.6); CREATINE KINASE 30 UL (21-215)
--- NOTE | 2018-12-26 13:53 | NUR ---
PATIENT IS ALERT, NOT COOPERATIVE. PATIENT STATES SHE HATES THIS HOSPITAL. HAVE APPROACHED THIS PATIENT FOR IV PLACEMENT AND PATIENT IS REFUSING. TYRING TO TALK PATIENT INTO IV PLACEMENT IN ORDER TO TREAT ACCORDINGLY. PATIENT PRESENTS WITH BAD ATTITUDE STATING SHE IS GOING TO PUNCH HER FAMILY WHEN SHE SEES THEM FOR MAKING HER COME HERE.
--- NOTE | 2018-12-26 14:02 | NUR ---
PATIENT FINALLY AGREED TO IV PLACEMENT. 22 GAUGE IV PLACED X 1 STICK TO RIGHT HAND. GOOD BLOOD RETURN, EASY FLUSH. TAPED, DATED AND SECURED. TOLERATED IV PLACEMENT WELL. NO DISTRESS.
[2018-12-26 14:37] VITALS: BP 119/71
--- NOTE | 2018-12-26 15:39 | NUR ---
UP AMBULATING HALLWAY WITH FAMILY MEMBER.
[2018-12-26 16:20] VITALS: BP 117/70
[2018-12-26 18:28] LABS: CKMB 1.3 U/L (0.0-3.6); CREATINE KINASE 28 UL (21-215)
[2018-12-26 18:29] LABS: TROPONIN-I 0.552 ng/mL (0.000-0.060)
--- NOTE | 2018-12-26 19:17 | NUR ---
RECIEVED BEDSIDE SHIFT REPORT. ALERT AND ORIENTED X4. CONFUSED WHEN SHE GETS UP OUT OF BED. IV TO RIGHT HAND SL.. TELEMETRY IN PLACE. DENIES ANY NEEDS AT THIS TIME.
[2018-12-26 20:00] VITALS: BP 120/68
[2018-12-27] VITALS: BP 124/72
[2018-12-27 00:55] LABS: CKMB 0.9 U/L (0.0-3.6); CREATINE KINASE 30 UL (21-215)
[2018-12-27 01:04] LABS: TROPONIN-I 0.578 ng/mL (0.000-0.060)
[2018-12-27 04:00] VITALS: BP 126/66
[2018-12-27 04:38] LABS: BASOPHILS 0.4 % (0-2); EOSINOPHILS 0.9 % (0-7); HEMATOCRIT 44.3 % (36.0-48.0); HEMOGLOBIN 14.7 g/dL (12-16); IMMATURE GRANULOCYTES 0.3 % (0-5); LYMPHOCYTES 26.5 % (15-50); MCH 29.7 pg (26.0-34.0); MCHC 33.2 g/dL (31.0-37.0); MEAN PLATELET VOLUME 11.9 fL (7.4-10.4); NEUTROPHILS 60.9 % (40-80); RBC 4.95 10x6/uL (4.00-5.40); RDW 13.3 % (11.5-14.5); WBC 6.8 10x3/uL (4.8-10.8)
[2018-12-27 04:42] LABS: MCV 89.5 fL (80.0-100.0); PLATELET COUNT 263 10x3/uL (130-400)
[2018-12-27 05:00] LABS: CALC OSMOLALITY 284 mosm/kg (275-300); CALCIUM 8.9 mg/dL (8.5-10.1); CARBON DIOXIDE 29.2 mmol/L (21.0-32.0); CHLORIDE - SERUM 106 mmol/L (98-107); CREATININE - SERUM 0.7 mg/dL (0.6-1.3); POTASSIUM - SERUM 3.6 mmol/L (3.5-5.1); SODIUM 143 mmol/L (136-145); UREA NITROGEN 18 mg/dL (7-18); eGFR NON AFRICAN AMERICAN 88 mL/min (90-120)
[2018-12-27 05:09] LABS: GLUCOSE 58 mg/dL (74-106)
--- NOTE | 2018-12-27 05:18 | NUR ---
LAB CALLED BLOOD GLUCOSE 58. PT NPO. GAVE 25ML OF D50 IV PUSH. WILL RECHECK FSBS.
--- NOTE | 2018-12-27 05:53 | NUR ---
BLOOD SUGAR 121 AT THIS TIME. WILL REPORT TO ONCOMMING.
--- NOTE | 2018-12-27 05:56 | NUR ---
REFUSES HIPACLENSE THIS AM. VERY AGGITATED AND RAISING HER FIST SAYING I'LL HIT YOU.
--- NOTE | 2018-12-27 09:04 | CN ---
PATIENT NAME:BETTIE BERGERON MEDICAL RECORD: [id number] : 52 LOCATION:[facility] D.2117 ADMIT DATE: 12/26/18 ACCOUNT: [id number] CONSULTING PHYSICIAN: HALEY FUNEZ MD REFERRING PHYSICIAN: NEGRO KNOX MD DATE OF CONSULTATION: 12/26/2018 HISTORY OF PRESENT ILLNESS: A 68-year-old female with a known history of coronary artery disease, status post bypass grafting, presented with chest pressure and tightness, shortness of breath, found to be in AFib RVR. Subsequently, found to have cardiac enzymes consistent with NSTEMI. We are asked to see her concerning her cardiovascular status. Currently in atrial flutter 2:1. PAST MEDICAL HISTORY: Includes: 1. History of coronary artery disease status post bypass grafting. 2. Hyperlipidemia. 3. Hypertension. 4. Diabetes mellitus. ALLERGIES: None known. SOCIAL HISTORY: Nonsmoker, nondrinker. Does try to walk on a regular basis. MEDICATIONS: Include Aricept 5 mg p.o. at bedtime, Plavix 75 every day, aspirin 81 every day, Lipitor 40 every day, metoprolol 25 b.i.d., quinapril 20 every day, insulin per scale, Glucophage 1 gram b.i.d. REVIEW OF SYSTEMS: The patient reports easy bruising but reports no swollen glands. The patient reports no fever, no night sweats, no significant weight gain, no significant weight loss. No significant exercise tolerance. The patient reports no dry eyes, no irritation, no vision change. Patient reports no difficulty hearing and no ear pain. Patient reports no frequent nose bleeds or nose and sinus problems. Patient reports on arm pain on exertion. No shortness of breath while lying down. No history of heart murmur. Patient reports no cough, no wheezing or coughing up blood. Patient reports no abdominal pain, no vomiting. Normal appetite. No diarrhea and not vomiting blood. No nausea and no constipation. Patient reports no incontinence. No difficulty urinating. No hematuria. No increased frequency. Patient reports no muscle aches. No weakness, no arthralgias, no back pain. No swelling of the extremities. Patient reports no abnormal mole, no jaundice, no rashes. Reports no loss of consciousness. No weakness and no numbness. No seizures, dizziness, or headaches. The patient reports no depression, no sleep disturbance, feeling safe in a relationship and no alcohol abuse. Patient reports on fatigue. Reports no runny nose or sinus pressure. No itching, no hives, and no frequent sneezing. PHYSICAL EXAMINATION: GENERAL: Pleasant female in no acute distress, appears stated age. VITAL SIGNS: Blood pressure 124/73, pulse 63 and regular. Telemetry shows flutter with variable block at this point. HEENT: Normocephalic, atraumatic. NECK: No bruits noted. HEART: Regular. A II/ systolic ejection murmur. LUNGS: Good excursion. CONSULT REPORT [id number] BETTIE BERGERON ABDOMEN: Soft, nontender. EXTREMITIES: Pulses 2+. No edema. DIAGNOSTIC DATA: ECG shows atrial flutter, variable block at this point. IMPRESSION: At this point in time, non-ST segment elevation myocardial infarction, difficult to assess type 1 or type 2. Given known history of coronary artery disease. We will plan for angiography. Given symptoms continuing, may consider PILY and cardioversion in the near future. TRANSINT:[id number] Voice Confirmation ID: [id number] DOCUMENT ID: [id number] HALEY FUNEZ MD at 0904 CC: [id number] DICTATION DATE: 12/26/18 1008 EXERCISE RIDER: 12/26/18 1155 ADM [place] [id number] [place] [id number]
--- NOTE | 2018-12-27 09:04 | NUR ---
REFUSING VS AND REFUSES TO WEAR HER HEART MONITOR. TOOK AM MEDS WITHOUT ANY PROBLEMS. WILL CONT. TO MONITOR.
--- NOTE | 2018-12-27 09:10 | NUR ---
PRE-OPS GIVEN. TO [facility] BY ZACK.
--- NOTE | 2018-12-27 10:41 | NUR ---
BACK FROMN LIVESTOCK AUCTIONEER. VS WNL. RIGHT GROIN STABLE WITHOUT BLEEDING OR HEMATOMA NOTED. WILL MONITOR.
[2018-12-27 12:00] VITALS: BP 98/64
--- NOTE | 2018-12-27 14:51 | NUR ---
BED REST UP. GROIN STABLE.
[2018-12-27 16:11] LABS: PLT FUNCT.(P2Y12) PLAVIX 60 PRU (194-418)
[2018-12-27 17:03] VITALS: BP 116/64
--- NOTE | 2018-12-27 20:14 | NUR ---
RECIEVED BEDSIDE SHIFT REPORT. UP IN CHAIR WITH EYES OPEN. ALERT AND ORIETNED X4. DSG TO RIGHT GROIN CDI. IV TO RIGHT HAND SL WITH DSG INTACT. TELEMETRY IN PLACE. DENIES ANY NEEDS AT THIS TIME.
[2018-12-27 20:42] VITALS: BP 105/71
[2018-12-27 23:51] VITALS: BP 111/67
--- NOTE | 2018-12-28 04:35 | NUR ---
REFUSED VITAL SIGNS AND LABS. WHEN ASKED WHY SHE SAID " I DONT LIKE BEING WOKE UP IN THE MORNINGS". WILL ASK LAB TO ATTEMPT LATER.
--- NOTE | 2018-12-28 04:40 | NUR ---
CALLING OUT FOR HELP. WHEN ENTER THE ROOM SHE ASKED IF I COULD CLOSE THE DOOR. DOOR CLOSED.
--- NOTE | 2018-12-28 05:29 | NUR ---
S/S AND LANTUS HELD LAST NIGHT D/T LOW BLOOD SUGARS THAT MORNING. BLOOD SUGAR 82 AT THIS TIME.
--- NOTE | 2018-12-28 07:44 | NUR ---
ALERT AND ORIENTED.TELEMERTY SHOWS FLUTTER 104. RIGHT HAND SL. RIGHT GROIN WITH DRSG DRY AND INTACT. RIGHT HAND SL. DENIES ANY NEEDS. NPO FOR POSSIBLE CARDIOVERSION
[2018-12-28 08:12] LABS: BASOPHILS 0.4 % (0-2); EOSINOPHILS 0.5 % (0-7); HEMATOCRIT 44.6 % (36.0-48.0); HEMOGLOBIN 14.7 g/dL (12-16); IMMATURE GRANULOCYTES 0.3 % (0-5); LYMPHOCYTES 18.1 % (15-50); MCH 29.6 pg (26.0-34.0); MCV 89.7 fL (80.0-100.0); MEAN PLATELET VOLUME 11.2 fL (7.4-10.4); MONOCYTES 9.3 % (2-11); NEUTROPHILS 71.4 % (40-80); PLATELET COUNT 253 10x3/uL (130-400); RBC 4.97 10x6/uL (4.00-5.40); RDW 13.3 % (11.5-14.5); WBC 7.9 10x3/uL (4.8-10.8)
[2018-12-28 08:22] LABS: CALC OSMOLALITY 280 mosm/kg (275-300); CALCIUM 8.7 mg/dL (8.5-10.1); CARBON DIOXIDE 27.8 mmol/L (21.0-32.0); CHLORIDE - SERUM 105 mmol/L (98-107); CREATININE - SERUM 0.8 mg/dL (0.6-1.3); SODIUM 140 mmol/L (136-145); UREA NITROGEN 17 mg/dL (7-18); eGFR NON AFRICAN AMERICAN 76 mL/min (90-120)
[2018-12-28 08:23] LABS: GLUCOSE 95 mg/dL (74-106)
[2018-12-28 09:25] VITALS: BP 109/75
--- NOTE | 2018-12-28 10:20 | NUR ---
PT BACK FROM PILY AND CARDIOVERSION. V/S STABLE . TELEMERTY SHOWS SB 52. SR UP WITH CALL LIFGR IN [place]
--- NOTE | 2018-12-28 11:12 | EC ---
PATIENT:BETTIE BERGERON DATE OF SERVICE: 12/26/18 SEX: F MEDICAL RECORD: [id number] DATE OF : 52 LOCATION:D.M2 D.211 AGE OF PATIENT: 68 ADMISSION DATE: 12/26/18 REFERRING PHYSICIAN: INTERPRETING PHYSICIAN: HALEY FUNEZ MD ECHOCARDIOGRAM REPORT ECHO CHARGES 4 ECHO COMPLETE Date: 12/26/18 CLINICAL DIAGNOSIS: AFIB, CHF ECHOCARDIOGRAPHIC MEASUREMENTS (adult normal given) AC root (d.<3.7cm) 2.4 cm LV Septum d (<1.2 cm> 0.9 cm Valve Excursion 1.5 cm LV Septum (systole) 1.0 cm Left Atria (s.<4.0cm> 4.1 cm LVPW d(<1.2cm) 1.2 cm RV (d.<2.3cm) 2.3 cm LVPW (sytole) 1.5 cm LV diastole(<5.6CM) 4.3 cm MV E-F(>70mm/sec) cm LV systole 3.0 cm LVOT Diameter 1.8 cm MV exc.(>10mm) cm Est.ejection fraction (50-75%) % DOPPLER: LVIT cm/sec A 26 cm/sec E 77 cm/sec LA cm/sec RVSP 18.7 mmHg LVOT 77 cm/sec AOP1/2T m/s Asc. Ao 96 cm/sec RVOT 60 cm/sec RA cm/sec PA 70 cm/sec AV Gradient Peak 3.7 mmHg AV Mean 2.0 mmHg AV Area 2.0 cm MV Gradient Peak 3.8 mmHg MV Mean 1.9 mmHg MV Area cm COMMENTS: Cornice Maker: Tracy GAMBLE Transformer Inspector: 3 Dr. Obregon TAPE# PACS Pericardial Effusion N DATE OF SERVICE: Adequate 2D, color-flow, spectral Doppler, and M-mode. No LVH. LV internal dimensions are normal. LV appears to be lower limits of normal to mildly reduced at 45% to 50%. Aortic valve is tricuspid. No evidence of stenosis by Doppler interrogation. Left atrium is upper limits of normal to minimally dilated at 4.1 cm. Mitral valve shows no prolapse. Trace MR. Right-sided chambers are grossly normal. Trace TR. TRANSINT:[id number] Voice Confirmation ID: [id number] DOCUMENT ID: [id number] ECHOCARDIOGRAM REPORT [id number] BETTIE BERGERON GREGORY A MD at 1112 CC: [id number] DICTATION DATE: 12/27/18 1338 EGG WORKER: 12/27/18 1352 ADM IN [facility] [address] [place] [id number]
--- NOTE | 2018-12-28 11:12 | OP ---
PATIENT NAME: BETTIE BERGERON MEDICAL RECORD: [id number] :52 LOCATION:D. D.2117 ADMISSION DATE:12/26/18 SURGEON: HALEY FUNEZ MD DATE OF OPERATION: 12/27/2018 APPROACH: Right femoral artery approach. CATHETERS: A 5-Occitan sheath, 5/4 left and right Ariana, 5/4 pig. PROCEDURE: We immediately did PTCA and stenting of the circumflex and OM after the procedure was finished. FINDINGS: Left ventriculography in 30-degree ORDOÑEZ view: Normal wall motion and normal systolic function. AORTIC ROOT INJECTION: Aortic root injection was performed at 12 for 36. This showed no bypass grafts patent. CORONARY ANATOMY: LEFT MAIN: Left main is free of disease. LAD: Fills for a short period of time, then is seen filling competitive flow via the SANDS to the LAD. CIRCUMFLEX: Circumflex has a proximal stenosis of 80%. There is a moderate-sized OM that has a 90% stenosis just after the takeoff of the OM itself. RIGHT CORONARY ARTERY: Totally occluded, fills via the [id number] collaterals. LAD: The LAD is widely patent with good runoff distally in the LAD. PLAN: Intervention of circumflex and OM momentarily. DESCRIPTION OF PROCEDURE: A 5-Occitan sheath was exchanged for a 6-Occitan sheath. An EBU 3.5 guiding catheter, good catheter support; followed by 300-cm Whisper wire, which was placed across the circumflex and down to the OM. A preformed balloon used in the OM and circumflex was a 2.0 x 15 mm balloon up to 10 atmospheres pre-deployment. Next, stents were deployed at the OM. It was a 2.5 x 15-mm Buchanan drug-eluting stent proximally in the circumflex, a 22 x 2.5 stent again up to 14 atmospheres for 45 seconds. This did show snowplowing to the circumflex from stenting to the OM and the Whisper wire was placed down into the distal true circumflex and a 2.5 x 8 balloon was inflated up to 10 atmospheres, which showed less than 20% residual from the snowplow. IMPRESSION: Successful PTCA and stenting of the OM and circumflex, 90% OM and 80% circumflex stenosis. No significant residual. NAM flow was 3 throughout the procedure. Heparin was used during the case. The patient was previously on Plavix. Sheath was closed with ExoSeal device. TRANSINT:[id number] Voice Confirmation ID: [id number] DOCUMENT ID: [id number] OPERATIVE REPORT [id number] BETTIE BERGERON GREGORY A MD at 1112 CC: [id number] DICTATION DATE: 12/27/18 1015 SENSITIZER: 12/27/18 1117 ADM IN [place] [id number] [place] [id number]
[2018-12-28 12:00] VITALS: BP 93/49
[2018-12-28] MEDS ORDERED: BETAPACE 120 M120 MG PO (14:30)
--- NOTE | 2018-12-28 15:29 | NUR ---
PT DISCHARGED. IV DCD WITH TIP INTACT. TO PRIVATE CAR PER WHEEL CHAIR.
[2018-12-28 15:53] LABS: APPEARANCE CLEAR (CLEAR); BILIRUBIN NEGATIVE (NEGATIVE); COLOR DK YELLOW (YELLOW); GLUCOSE 250 mg/dL (NEGATIVE); KETONE NEGATIVE (NEGATIVE); NITRITE NEGATIVE (NEGATIVE); PROTEIN NEGATIVE (NEGATIVE); SPECIFIC GRAVITY 1.015 (1.005-1.020); UROBILINOGEN NORMAL (NORMAL)
[2018-12-28 15:54] LABS: BACTERIA FEW /hpf (NEGATIVE); EPITHELIAL CELLS OCC /hpf (0-5)
--- NOTE | 2018-12-28 16:55 | MORECARE ---
CASE MANAGEMENT DISCHARGE SUMMARY PATIENT: BETTIE BERGERON UNIT: [id number] ADM DATE: 12/26/18 AGE: 68 : 51 SEX: F ROOM/BED: D.2168 AUTHOR: LAURA,DOC PHYSICIAN: REFERRING PHYSICIAN: NEGRO KNOX MD DATE OF SERVICE: 12/28/18 Discharge Plan Patient Name: BETTIE BERGERON Facility: [facility]:[place] : 1950 Planned Disposition: Home Anticipated Discharge Date: 12/28/18 Discharge Date: 12/28/2018 Expected LOS: 2 Initial Reviewer: [email or web address] Initial Review Date: 12/28/2018 Generated: 12/28/18 5:54 pm Comments DCP- Discharge Planning Updated by [email or web address]: Lopez Daily on 12/28/18 3:[address] Patient Name: BETTIE BERGERON Admission Status: ER Accout number: [id number] Admission Date: 12-26-2018 : 1950 Admission Diagnosis: Attending: NEGRO KNOX Current LOS: 2 Anticipated DC Date: 12-28-2018 Planned Disposition: Home Primary Insurance: MEDICARE A & B Discharge Planning Comments: CM MET WITH PT IN ROOM TO DISCUSS DISCHARGE PLANNING AND NEEDS. BETTIE BERGERON provided verbal consent to discuss current and ongoing needs with/in the presence of: SISTERLIU. PT REPORTS LIVING AT HOME INDEPENDENTLY WITH HER MOTHER IN LAW. PT HAS NO MEDICAL EQUIPMENT AND NO OUTSIDE SERVICES ASSISTING IN THE HOME. CM DISCUSSED AVAILABILITY OF HOME HEALTH, REHAB SERVICES AND MEDICAL EQUIPMENT. PT DENIES DISCHARGE NEEDS, REPORTS HER SISTER WILL PICK HER UP FOR DISCHARGE HOME TODAY. PT'S MOTHER IN LAW WILL BE ASSISTING WITH PT'S CARE AT HOME ALSO. IMPORTANT MESSAGE FROM MEDICARE PROVIDED AND EXPLAINED. PSYCHOLOGIST CLINICAL NURSE NOTIFIED. Chief Psychology: Lopez Daily DCPIA - Discharge Planning Initial Assessment Updated by [email or web address]: Lopez Daily on 12/28/18 4:46 pm * Is the patient Alert and Oriented? Yes * How many steps to enter\exit or inside your home? NONE * PCP DR. MITCHELL * Pharmacy [facility] IN [place] * Preadmission Environment Home with Family * ADLs Independent * Equipment None * Other Equipment NO MEDICAL EQUIPMENT PROVIDER PREFERENCE * List name and contact numbers for known caregivers / representatives who currently or will assist patient after discharge: TALHA MARSHALL, BROTHER, LIU CHACKO, SISTER, * Verbal permission to speak to the caregivers and representatives has been obtained from the patient. Yes * Community resources currently utilized None * Please name any agencies selected above. NONE * Additional services required to return to the preadmission environment? No * Can the patient safely return to the preadmission environment? Yes * Has this patient been hospitalized within the prior 30 days at any hospital? No Coverage Notice Reviewer: [email or web address] Yajaira Daily Notice Issued Date-Time: 12/28/2018 14:55 Notice Type: IM Discharge Notice Notice Delivered To: Patient Relationship to Patient: Senior Hadoop Developer Name: Delivery Method: HAND - Hand Delivered Krista Days: Prior Verbal Notification: Recipient Understood Notice: Yes Recipient Signature: Yes Med Rec Note Co-signed by Attending: Coverage Notice Comment: Patient Name: BETTIE BERGERON Page [phone] at 1655 All edits/amendments must be made on the electronic document DICTATION DATE: 12/28/181653 LABORER PRESTRESSED CONCRETE: FREDERIC 12/28/181653 RPT#: [id number] DC DATE:12/28/18 STATUS: DIS IN [facility] [address] [place] [address] END OF REPORT
--- NOTE | 2018-12-29 15:17 | OP ---
PATIENT NAME: BETTIE BERGERON MEDICAL RECORD: [id number] :52 LOCATION:D. D.7 ADMISSION DATE:12/26/18 SURGEON: HALEY FUNEZ MD DATE OF OPERATION: 12/28/2018 CARDIOVERSION NOTE DESCRIPTION OF PROCEDURE: After general sedation via TIVA via anesthesia and no evidence of thrombus via transesophageal as described above, single synchronized shock was successful in restoring atrial flutter to normal sinus rhythm. IMPRESSION: Successful cardioversion. COMPLICATIONS: None. DISPOSITION: To the floor, stable. TRANSINT:[id number] Voice Confirmation ID: [id number] DOCUMENT ID: [id number] HALEY FUNEZ MD at 1517 CC: [id number] DICTATION DATE: 12/28/18956 CASING RUNNING MACHINE TENDER: 12/28/18 1202 DIS IN 12/28/18 [facility] [address] [place] [address]
--- NOTE | 2018-12-29 15:17 | TEE ---
PATIENT:BETTIE BERGERON MEDICAL RECORD: [id number] LOCATION:D.M2 D.211 AGE OF PATIENT: 68 ADMISSION DATE: 12/26/18 SEX: F REFERRING PHYSICIAN: INTERPRETING PHYSICIAN: HALEY FUNEZ MD TRANSESOPHAGEAL ECHOCARDIOGRAM Date: 12/28/18 PILY CHARGE Y INDICATIONS: AFIB, ASSESS FOR CLOT PRE-CARDIOVERSION PREMEDICATIONS: PATIENT'S RESPONSE PROCEDURE DOPPLER MEASUREMENTS: LVIT LA PA 70 RA LVOT 77 RVOT 60 Asc. Ao 96 AV Gradient Peak 3.7 AV Mean 2.0 AV Area 2.0 MV Gradient Peak 3.8 MV Mean 1.9 MV Area INTERPRETATION: Doppler: 2-D: COLOR FLOW DOPPLER NORMAL SALINE STUDY: MISCELLANOUS: DIAGNOSIS: PLAN: Medical Office Assistant Instructor:3 Dr. Obregon Rail Director: Tracy GAMBLE COMMENTS: DATE OF SERVICE: 12/28/2018 TRANSESOPHAGEAL NOTE DESCRIPTION OF PROCEDURE: After general sedation via TIVA via anesthesia, transesophageal Omniplane probe was placed in the distal esophagus and the proximal stomach without difficulty. FINDINGS: LVH is present. LV internal dimensions are normal. Wall motion is TRANSESOPHAGEAL ECHOCARDIOGRAM REPORT [id number] JERRI BERGERON normal. EF is greater than or equal to 55%. Aortic valve is sclerotic; however, there is excellent valve excursion. No significant AI. Left atrium appears normal. Left atrial appendage was well visualized with good contractility with the flutter waves via Doppler interrogation. No obvious thrombus. There is mild plus MR. Right-sided chamber is grossly normal. Mild TR. At the end of procedure, transesophageal Omniplane probe was turned posteriorly and this showed no evidence of significant atherosclerotic debris in the descending aorta. TRANSINT:[id number] Voice Confirmation ID: [id number] DOCUMENT ID: [id number] at 1517 CC: [id number] DICTATION DATE: 12/28/18 0957 AIRFRAME AND POWERPLANT MECHANIC: 12/28/18 1159 DIS IN 12/28/18 [place] [id number] [place] [id number]
== END 2018-12-28 15:40 | disposition home or self-care (01) | DRG 247 ==
LOC: D.ER 00:05 → D.M2 01:19 → D.SDCHOLD 12-28 10:57 → D.M2 12-28 10:57
PROVIDERS: Emergency Medicine; Internal Medicine Interventional Cardiology; Thoracic Surgery (Cardiothoracic Vascular Surgery); ADMIT Internal Medicine Nephrology; ATTEND Internal Medicine Nephrology
PROC: B2111ZZ Fluoroscopy of Multiple Coronary Arteries using Low Osmolar Contrast (ICD-10-PCS; 2018-12-27)
PROC: B2151ZZ Fluoroscopy of Left Heart using Low Osmolar Contrast (ICD-10-PCS; 2018-12-27)
PROC: 027035Z Dilation of Coronary Artery, One Artery with Two Drug-eluting Intraluminal Devices, Percutaneous Approach (ICD-10-PCS; principal; 2018-12-27 09:00)
PROC: 4A023N7 Measurement of Cardiac Sampling and Pressure, Left Heart, Percutaneous Approach (ICD-10-PCS; 2018-12-27 09:00)
DX: I21.4 Non-ST elevation (NSTEMI) myocardial infarction (principal); E87.1 Hypo-osmolality and hyponatremia; I48.91 Unspecified atrial fibrillation; R00.0 Tachycardia, unspecified; I25.10 Atherosclerotic heart disease of native coronary artery without angina pectoris; E78.5 Hyperlipidemia, unspecified; I10 Essential (primary) hypertension; E11.9 Type 2 diabetes mellitus without complications

== ENCOUNTER → 2019-05-07 11:48 | Outpatient (CLI) | payer MEDICARE, BC ==
[2018-12-26 11:47] VITALS: BMI 24.2
[~2019-05-07 11:48] MED LIST changes: +BETAPACE 120 M120 MG PO; +DONEPEZIL HCL5 MG PO
== END | disposition home or self-care (01) ==
LOC: D.HCCECHO 11:30
PROVIDERS: ATTEND Internal Medicine Cardiovascular Disease
DX: I25.10 Atherosclerotic heart disease of native coronary artery without angina pectoris (principal)